=== PATIENT | female | born 1950 | race Caucasian/White ===

== ENCOUNTER 2020-01-19 07:44 | Outpatient (CLI) | payer MEDICARE, SELFPAY ==
--- NOTE | ~2020-01-19 | CT_ITS ---
EXAMINATION: CT abdomen pelvis wo/w con DATE: 01/19/2020 08:52 INDICATION: Microscopic hematuria TECHNIQUE: Computed tomography (CT) of the abdomen and pelvis was performed without and subsequently with 130 cc Omnipaque 350 intravenous contrast. Automated exposure control and iterative reconstructi on technique were employed. Exam dose: 751.43 mGy-cm total exam DLP. COMPARISON: None. FINDINGS: The lung bases are clear. Normal heart size. No pericardial or pleural effusion. No hepatic, splenic, pancreatic, and adrenal space-occupying mass lesion. Approximately 6.5 mm upper pole left renal cyst 4.7 mm probable mid to upper left renal cyst. No urinary tract calculus or hydroureteronephrosis. No abdominal aortic aneurysm. No intraperitoneal or retroperitoneal or pelvic mass lesion or adenopat hy or ascites. There are bilateral ureteral jets. No urinary bladder wall thickening. Minimal air in the urinary sam dder lumen. Retroverted uterus. 6 mm left ovarian cyst. There are numerous diverticula of the left colon; no CT evidence of diverticulitis. No bowel obstruct ion, pneumatosis or intraperitoneal free air. Retained cecal mesentery, with the cecum overlying the left mid and lower abdomen. There are fluid le vels in the small bowel and colon suggesting enterocolitis. Diffuse idiopathic skeletal hyperostosis of the lower thoracic spine. There is degenerative disc disease of the lumbar spine, most pronounced at L2-3. Bilateral hip moderate osteoarthritis IMPRESSION: 2 probable 6.5 and 4.7 mm left renal cysts No urinary tract calculus or hydroureteronephrosis Diverticulosis of the colon Retained cecal mesentery Probable enterocolitis Reviewed, dictated and finalized at [facility]. Reviewed, dictated and finalized at [facility].
[2020-01-19 08:35] LABS: Estimated Glomerular Filt Rate > 60
== END 2020-01-19 07:45 | disposition home or self-care (01) ==
PROVIDERS: Visit Provider Nurse Practitioner Adult Health
DX: R31.29 Other microscopic hematuria (principal); N28.1 Cyst of kidney, acquired; K57.90 Diverticulosis of intestine, part unspecified, without perforation or abscess without bleeding
CPT/HCPCS: 36415; 74178; Q9967

== ENCOUNTER 2021-08-10 07:52 | Outpatient (CLI) | payer MEDICARE, SELFPAY ==
--- NOTE | ~2021-08-10 | XR_ITS ---
EXAMINATION: XR abdomen/kub 1V DATE: 08/10/2021 08:18 INDICATION: Right flank pain. TECHNIQUE: A supine view of the abdomen on 2 radiographs was obtained. COMPARISON: CT abdomen and pelvis 08/10/2021 FINDINGS: There are no dilated loops of bowel. There is no urolithiasis. IMPRESSION: 1. No urolithiasis. Reviewed, dictated and finalized at [facility]. 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 No urolithiasis.
--- NOTE | ~2021-08-10 | CT_ITS ---
EXAMINATION: CT abdomen pelvis wo con DATE: 08/10/2021 08:22 INDICATION: Right flank pain for 2 months TECHNIQUE: Computed tomography (CT) of the abdomen and pelvis was performed without intravenous contr ast. The dose-length product was 320.83 mGy-cm. Automated exposure control and iterative reconstructi on technique were employed. COMPARISON: CT dated 08/10/2021. FINDINGS: Lung bases are unremarkable. Heart size is normal. No significant pleural or pericardial ef fusion. The liver, spleen, pancreas, adrenal glands and kidneys are unremarkable. Gallbladder is pres ent. No renal/ureteral stones or hydronephrosis.. There is mild atherosclerosis without aneurysm. Jim dder is decompressed. Nonobstructive bowel gas pattern. Colonic diverticulosis without evidence for d iverticulitis. Mild lumbar spondylosis. IMPRESSION: 1. No acute abdominal abnormality. No findings to account for patient's symptoms. Reviewed, dictated and finalized at [facility]. 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 No acute abdominal abnormality. No findings to account for patient's symptom s.
== END 2021-08-10 07:53 | disposition home or self-care (01) ==
LOC: ANHIMG 07:57
PROVIDERS: Visit Provider Nurse Practitioner Adult Health
DX: R10.9 Unspecified abdominal pain (principal)
CPT/HCPCS: 74018; 74176

== ENCOUNTER 2022-01-30 10:00 | Outpatient (RCR) | payer MEDICARE, SELFPAY | END 2022-01-30 23:59 | disposition home or self-care (01) | LOC: CHSSENLIFE 10:00 | PROVIDERS: PCP Family Medicine; Visit Provider Psychiatry & Neurology Psychiatry | DX: F33.1 Major depressive disorder, recurrent, moderate (principal) | CPT/HCPCS: 90792; 90853; 99213; 99214; G0463 ==

== ENCOUNTER 2022-05-01 10:00 | Outpatient (RCR) | payer MEDICARE, SELFPAY | END 2022-05-05 23:59 | disposition home or self-care (01) | LOC: CHSSENLIFE 10:00 | PROVIDERS: PCP Family Medicine; Visit Provider Psychiatry & Neurology Psychiatry | DX: F33.1 Major depressive disorder, recurrent, moderate (principal) | CPT/HCPCS: 90853; 99213; 99214; G0463 ==

== ENCOUNTER 2022-06-25 01:13 | Day surgery (SDC) | payer MEDICARE, SELFPAY ==
[2022-06-13 14:27] VITALS: BMI 25.4
[2022-06-25 09:14] VITALS: BP 125/69; PULSE 69; RESP 18; TEMP 36.4; O2SAT 95; BMI 24.0
[2022-06-25] MEDS: LACTATED RINGERS 1,000 ML 150 ML IV CONT (09:17)
--- NOTE | 2022-06-25 09:28 | WPDANESEPPF ---
Anes - Initial Pre Proc Eval Procedure: Operation Date: 06/25/22 10:15 Proposed Procedures p Esophagogastroduodenoscopy & Colonoscopy - Sukhdev Olea MD Date/Time: 06/25/22 09:28 Surgeon: Sukhdev Olea MD Pre Op Diagnosis: epigastric pain, Diarrhea Patient Data Age: 72 Gender: F Height: 1.63 m Weight: 63.6 kg Last Vital Signs Temp 97.5 F L 06/25/22 09:14 Pulse 69 06/25/22 09:14 Resp 18 06/25/22 09:14 BP 125/69 06/25/22 09:14 Pulse Ox 95 06/25/22 09:14 O2 Del Method Room Air 06/25/22 09:14 Allergies Allergy/AdvReac Type Severity Reaction Status Date / Time No Known Allergies Allergy Verified 06/25/22 09:12 Home Medications Medication Instructions Recorded Confirmed Type cholecalciferol (vitamin D3) 25 25 mcg PO DAILY 11/13/21 06/25/22 History mcg (1,000 unit) capsule dicyclomine 20 mg tablet 20 mg PO TID PRN abdominal 05/23/22 06/25/22 Rx discomfort #30 tabs duloxetine 60 mg capsule,delayed 60 mg PO DAILY 06/13/22 06/25/22 History release (Cymbalta) Patient hx anesthesia problems: none Family hx anesthesia problems: none Results Review: All pre-operative results and documents have been reviewed as part of the pre-operative evaluation. PENDING SALE TO [facility] Past Medical History Medical History (Updated 05/23/22 @ 09:35 by CAMPOS Almonte) Carpal tunnel syndrome Epigastric pain Strabismus 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 surgery Surgical History Surgical History History of cataract surgery History of orthopedic surgery Family History Family History (Updated 05/23/22 @ 09:02 by Nitin cMwilliams) Mother Hypertension Asthma Family history of osteoarthritis Alcoholism Depression Sibling Patient's sister is in good health Patient's brother is in good health Father Bleeding ulcer Social History Social History Smoking packs per day: 0.5 Smoking cigarettes per day: 10.0 Years smoked: 40 Smoking pack-years: 20.00 Smoking status: Current some day smoker Tobacco type: cigarettes Alcohol intake: current Substance use: never Substance use type: does not use Living arrangements: with family Spiritual care concerns: No Anes - Eval Final PreProcedure Day of Procedure 06/25/22 09:28 Patient weight: normal Heart: regular rate and rhythm Lungs: clear to auscultation Airway: Mallampati scale class II Neurological: alert and oriented Last oral intake: >/= 8 hours ASA classification: II Emergent: no Anesthetic plan: proceed Anesthesia type and monitoring: general GIVS and standard monitoring Results Review: All pre-operative results and documents have been reviewed as part of the pre-operative evaluation. Informed Consent: The patient's anesthetic plan and its attendant risks and benefits were discussed with the patient/family/POA. Questions were solicited and answers provided to the satisfaction of the patient/family/POA.
--- NOTE | 2022-06-25 10:00 | PM.HPGS ---
History of Present Illness History of Present Illness Consent: Risks, benefits, and alternatives have been discussed and questions answered. Patient agrees to proceed with procedure. Chief complaint: epigastric pain, Diarrhea Narrative: Nerissa Mejia is a 72 year old female with diarrhea since March using imodium prn, last colonoscopy 2010, also had intermittent epigastric pain and gerd that improved after using 30 days omeprazole. Review of Systems Constitutional: Constitutional: Denies headache(s) and Denies weakness Eyes: Eyes: Denies blurry vision ENT: Reports Normal hearing present, Denies headache(s) and Denies neck pain Cardiovascular: Cardiovascular: Denies chest pain and Denies dyspnea Respiratory: Respiratory: Denies dyspnea Gastrointestinal: Gastrointestinal: Reports no additional gastrointestinal complaints Genitourinary: Genitourinary: Denies dysuria Musculoskeletal: Musculoskeletal: Denies neck pain Integumentary/Breasts: Skin/Breast: Denies dry skin Neurologic: Reports Normal hearing present, Denies headache(s) and Denies weakness Psychiatric: Psychiatric: Denies anxiety Endocrine: Endocrine: Denies change in body appearance Hematologic/Lymphatic: Hematologic/Lymphatic: Denies easy bleeding Allergic/Immunologic: Allergic/Immunologic: Denies urticaria PMFSH Past Medical History Medical History (Updated 06/25/22 @ 10:06 by Sukhdev Olea MD) Carpal tunnel syndrome Diarrhea Epigastric pain Strabismus 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 surgery Surgical History Surgical History History of cataract surgery History of orthopedic surgery Family History Family History (Updated 05/23/22 @ 09:02 by Nitin Mcwilliams) Mother Hypertension Asthma Family history of osteoarthritis Alcoholism Depression Sibling Patient's sister is in good health Patient's brother is in good health Father Bleeding ulcer Social History Social History Smoking packs per day: 0.5 Smoking cigarettes per day: 10.0 Years smoked: 40 Smoking pack-years: 20.00 Smoking status: Current some day smoker Tobacco type: cigarettes Alcohol intake: current Substance use: never Substance use type: does not use Living arrangements: with family Spiritual care concerns: No Meds Home Medications and Allergies Home Medications Medication Instructions Recorded Confirmed Type cholecalciferol (vitamin D3) 25 25 mcg PO DAILY 11/13/21 06/25/22 History mcg (1,000 unit) capsule dicyclomine 20 mg tablet 20 mg PO TID PRN abdominal 05/23/22 06/25/22 Rx discomfort #30 tabs duloxetine 60 mg capsule,delayed 60 mg PO DAILY 06/13/22 06/25/22 History release (Cymbalta) Allergies Allergy/AdvReac Type Severity Reaction Status Date / Time No Known Allergies Allergy Verified 06/25/22 09:12 Vital Signs Vital Signs - 24 hr 06/25/22 09:14 Temperature 97.5 F L Pulse Rate 69 Respiratory Rate 18 Blood Pressure 125/69 Pulse Oximetry 95 Oxygen Delivery Room Air Exam Const: General: comfortable and no acute distress HENMT: Face/Nose/Sinus: Normal nares present Eyes: General: appearance normal, both eyes and all related structures Neck: Neck: no JVD Resp: Auscultation: clear to auscultation bilaterally Cardio: Rate: regular rate Rhythm: regular rhythm GI: Inspection: non-distended GI Palp: Yes Soft to palpation Skin: General skin exam: normal color Neuro: General: gait normal Speech: normal speech Extrem: General: normal to inspection Psych: Mental Status: mental status grossly normal Assessment and Plan Assessment and plan (1) Epigastric pain: Code(s): R10.13 - Epigastric pain Status: Acute Assessment and Plan: egd with bx may need to be back on ppi based on findings (it helped) (2) Diarrhea: Code(s): R19.7
--- NOTE | 2022-06-25 10:12 | SUR.OPER ---
EGD: [id number] COLON: [id number]
[2022-06-25 10:29] VITALS: BP 112/65; PULSE 89; RESP 26; O2SAT 97
[2022-06-25 10:39] VITALS: BP 117/94; PULSE 87; RESP 17; O2SAT 98
[2022-06-25 10:49] VITALS: BP 109/61; PULSE 81; RESP 20; O2SAT 100
== END 2022-06-25 11:03 | disposition home or self-care (01) ==
PROVIDERS: PCP Family Medicine; Visit Provider Internal Medicine Gastroenterology
PROC: 0DJ08ZZ Inspection of Upper Intestinal Tract, Via Natural or Artificial Opening Endoscopic (ICD-10-PCS; CPT 43235; principal; 2022-06-25 10:15)
DX: Z12.11 Encounter for screening for malignant neoplasm of colon (principal); K57.30 Diverticulosis of large intestine without perforation or abscess without bleeding; K64.8 Other hemorrhoids; R19.7 Diarrhea, unspecified; K21.00 Gastro-esophageal reflux disease with esophagitis, without bleeding; K44.9 Diaphragmatic hernia without obstruction or gangrene; F17.210 Nicotine dependence, cigarettes, uncomplicated
CPT/HCPCS: 45380; 43239; 88305; J2704; J7120

== ENCOUNTER 2022-08-01 10:00 | Outpatient (RCR) | payer MEDICARE, SELFPAY | END 2022-08-04 23:59 | disposition home or self-care (01) | LOC: CHSSENLIFE 10:00 | PROVIDERS: PCP Family Medicine; Visit Provider Psychiatry & Neurology Psychiatry | DX: F33.1 Major depressive disorder, recurrent, moderate (principal); F41.9 Anxiety disorder, unspecified | CPT/HCPCS: 90853; 99213; 99214; G0463 ==

== ENCOUNTER 2022-10-31 10:00 | Outpatient (RCR) | payer MEDICARE, SELFPAY | END 2022-11-04 23:59 | disposition home or self-care (01) | LOC: CHSSENLIFE 10:00 | PROVIDERS: PCP Family Medicine; Visit Provider Psychiatry & Neurology Psychiatry | DX: F33.1 Major depressive disorder, recurrent, moderate (principal); F41.9 Anxiety disorder, unspecified | CPT/HCPCS: 90832; 90853; 99214; G0463 ==

== ENCOUNTER 2023-02-03 10:00 | Outpatient (RCR) | payer MEDICARE, SELFPAY | END 2023-02-03 23:59 | disposition home or self-care (01) | LOC: CHSSENLIFE 10:00 | PROVIDERS: PCP Family Medicine; Visit Provider Psychiatry & Neurology Psychiatry | DX: F33.1 Major depressive disorder, recurrent, moderate (principal); F41.9 Anxiety disorder, unspecified | CPT/HCPCS: 90853; 99214; G0463 ==

== ENCOUNTER 2023-05-06 10:00 | Outpatient (RCR) | payer MEDICARE, SELFPAY ==
[2023-04-15 09:47] VITALS: BP 121/66; PULSE 103; RESP 20; TEMP 36.3
[2023-04-17 10:03] VITALS: BP 120/70; PULSE 118; RESP 22; TEMP 36.6; O2SAT 97
--- NOTE | 2023-04-17 10:24 | PC.NURSE ---
No nursing group due to MD visit.
[2023-04-22 10:26] VITALS: BP 122/68; PULSE 112; RESP 20; TEMP 36.5; O2SAT 99
--- NOTE | 2023-04-24 09:34 | PC.NURSE ---
No nursing group due to MD visit.
[2023-04-24 10:12] VITALS: BP 109/60; PULSE 108; RESP 20; TEMP 36.4; O2SAT 98
[2023-04-28 10:30] VITALS: BP 117/68; PULSE 112; RESP 20; TEMP 36.2; O2SAT 96
--- NOTE | 2023-04-28 11:32 | PC.NURSE ---
The patient had to leave unexpectedly after a phone call from her daughter who was having a medical emergency.
--- NOTE | 2023-04-30 10:02 | PC.NURSE ---
No nursing group today due to MD visit.
[2023-04-30 10:09] VITALS: BP 110/59; PULSE 106; RESP 20; TEMP 36.6; O2SAT 98
[2023-05-06 10:26] VITALS: BP 106/66; PULSE 112; RESP 20; TEMP 36.2; O2SAT 99
--- NOTE | 2023-05-08 10:33 | PC.NURSE ---
No nursing group today due to MD visit.
== END 2023-05-07 23:59 | disposition home or self-care (01) ==
LOC: CHSSENLIFE 10:00
PROVIDERS: PCP Family Medicine; Visit Provider Psychiatry & Neurology Psychiatry
DX: F33.1 Major depressive disorder, recurrent, moderate (principal); F41.9 Anxiety disorder, unspecified
CPT/HCPCS: 90853; 99213; 99214; G0463

== ENCOUNTER 2023-08-05 10:00 | Outpatient (RCR) | payer MEDICARE, SELFPAY ==
[2023-05-08 00:01] VITALS: BP 106/66; PULSE 112; RESP 20; TEMP 36.2; O2SAT 99
--- NOTE | 2023-05-08 10:33 | PC.NURSE ---
No nursing group on 05/08/2023 due to MD visit 05/08/2023 10:33.
--- NOTE | 2023-05-08 11:02 | WPDSLSPROGRE ---
Progress HPI Progress HPI Visit Attended By patient and staff History Obtained From patient Chief Complaint 3 week f/u HPI This is a follow-up for depression. Patient enjoys the program and participates well. She is working on issues such as coping skills and anxiety reduction. She had a scare recently when she fell off a friend's porch. Patient went to the ER and was found to have a sprained ankle and what sounds like a bruise on her tailbone and a pulled muscle in her back. Fortunately, she sustained no serious injury. She still continues to mostly abstain from cigarettes, and her GI symptoms have been fairly quiet recently. Patient is looking for to spending Thanksgiving with family. She continues on Cymbalta 60 mg b.i.d.. Average Number of Hours of Sleep 8 Sleep Quality sleep throughout the night Change in PMFSH Releveant to Presenting Illness Yes Describe Changes in PMFSH as per HPI Review of Systems Review of Systems Constitutional Reports denies change Eyes Reports WNL ENT Reports WNL Respiratory Reports WNL Cardiovascular Reports WNL Gastrointestinal Reports WNL (symptoms improved), Reports constipation and Reports loose stool Musculoskeletal Reports WNL (osteoarthritis, recent injury) and Reports muscle stiffness Neurologic Reports WNL Skin Reports bruising ADL's Reports WNL Exam Physical Exam Review of Lab Studies n/a Hygiene good General Behavior/Attitude Toward Examiner pleasant and cooperative Pain Yes Pain Location lower back Pain Characteristics acute and aching Psychiatric Exam Level of Consciousness alert Orientation person, place, time and situation Speech normal rate/tone/volume/prosody and coherent Language able to comprehend questions Mood less depressed Affect full range, appropriate and congruent Thought Processes/Form logical, linear and goal directed Thought Content diminished depressive symptoms Delusions none Homicidal/Assaultive Ideation none Suicidal Ideation none Hallucinations none Attention/Concentration focused Attention/Concentration Testing Methods observation/interview Short Term Memory Impairment none STM Testing Methods clinical interview (assessment/observation) Prison Memory Impairment none LTM Testing Methods recall of biographical information Intellectual Functioning roughly average Intellectual Functioning Assessed By fund of knowledge and current events Insight fair and improving Insight Assessed By ability to recognize & acknowledge mental illness, ability to understand the implications of mental illness, understanding of treatment options and ability to comply with treatment Judgement fair and improving Judgement Assessed By exploring recent decision-making MMSE n/a Patient Assets Patient is willing to accept treatment Patient Liabilities patient has chronic GI issues, nicotine dependence Assessment and Plan Clinical Impression/Diag Clinical Impression/Diagnosis F 33.1, progressing well. Continue IOP, monitor meds Progress Overview Reason for Continued Services in an Intensive Outpatient Program continued impaired mood and.or depression, patient would decompenste at a lower level of care and not at baseline level of functioning Treatment To Be Provided medication management and group/individual/rec therapy Discharge Disposition/Level of Care PCP Anticipated Discharge 8-12 weeks Certification Statement Certification Statement I believe this patient requires the services of the Intensive Outpatient Program and that there is reasonable expectation that the patient will make timely and significant practical improvement in the presenting acute symptoms as a result of this Intensive Outpatient Program. I do not believe this patient will benefit from a lesser l
[2023-05-13 14:31] VITALS: BP 119/74; PULSE 107; RESP 20; TEMP 36.2; O2SAT 96
--- NOTE | 2023-05-15 10:17 | PC.NURSE ---
The patient was unable to change group days this week so will only attend one group day this week due to THREE DIMENSIONAL MAP MODELER illness.
[2023-05-20 10:34] VITALS: BP 117/68; PULSE 100; RESP 20; TEMP 36.3; O2SAT 98
--- NOTE | 2023-05-22 09:54 | PC.NURSE ---
No nursing group today due to MD visit.
[2023-05-22 10:30] VITALS: BP 113/62; PULSE 99; RESP 20; TEMP 37; O2SAT 98
--- NOTE | 2023-05-22 10:46 | WPDSLSPROGRE ---
Progress HPI Progress HPI Visit Attended By patient and staff History Obtained From patient Chief Complaint 2 week f/u for depression HPI Is a routine follow-up for depression. Patient enjoys the program participates well, and working on issues including coping skills and anxiety reduction. Her tailbone and her pulled muscle in her back seem to have healed after her fall, but her ankle is still bruised and quite painful. X-ray revealed no fracture but likely just a bad sprain. She also continues to mostly abstain from cigarettes, and her GI symptoms recently have been alleviated. She is looking forward to spending [place] with family. Patient continues on Cymbalta 60 mg b.i.d.. Average Number of Hours of Sleep 8 Sleep Quality sleep throughout the night Change in PMFSH Releveant to Presenting Illness Yes Describe Changes in PMFSH Continuing improvement after recent fall Review of Systems Review of Systems Constitutional Reports denies change Eyes Reports WNL ENT Reports WNL Respiratory Reports WNL Cardiovascular Reports WNL Gastrointestinal Reports WNL (symptoms improved) Musculoskeletal Reports WNL (osteoarthritis, recent fall) Neurologic Reports WNL Skin Reports bruising ADL's Reports WNL Exam Physical Exam Review of Lab Studies no Significant Lab Findings n/a Hygiene good General Behavior/Attitude Toward Examiner pleasant and cooperative Pain Yes Pain Location foot/ankle Pain Characteristics acute and aching Psychiatric Exam Level of Consciousness alert Orientation person, place and time Speech normal rate/tone/volume/prosody and coherent Language able to comprehend questions Mood less depressed Affect full range, appropriate and congruent Thought Processes/Form logical, linear and goal directed Thought Content diminished depressive symptoms Delusions none Homicidal/Assaultive Ideation none Suicidal Ideation none Hallucinations none Attention/Concentration focused Attention/Concentration Testing Methods observation/interview Short Term Memory Impairment none STM Testing Methods clinical interview (assessment/observation) 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 Memory Impairment none LTM Testing Methods recall of historical events Intellectual Functioning roughly average Intellectual Functioning Assessed By current events Insight fair and improving Insight Assessed By ability to recognize & acknowledge mental illness, ability to understand the implications of mental illness, understanding of treatment options and ability to comply with treatment Judgement fair and improving Judgement Assessed By exploring recent decision-making MMSE n/a Patient Assets patient is willing to accept treatment Patient Liabilities patient has chronic GI symptoms, nicotine dependence Assessment and Plan Clinical Impression/Diag Clinical Impression/Diagnosis F 33.1, progressing well. Continue IOP, monitor meds Progress Overview Reason for Continued Services in an Intensive Outpatient Program continued impaired mood and.or depression, patient would decompenste at a lower level of care and not at baseline level of functioning Treatment To Be Provided medication management and group/individual/rec therapy Discharge Disposition/Level of Care PCP Anticipated Discharge 8-12 weeks Certification Statement Certification Statement I believe this patient requires the services of the Intensive Outpatient Program and that there is reasonable expectation that the patient will make timely and significant practical improvement in the presenting acute symptoms as a result of this Intensive Outpatient Program. I do not believe this patient will benefit from a lesser level of care or could be adequately and appropriately treated in a less restrictive environment.
[2023-05-27 10:24] VITALS: BP 105/66; PULSE 106; RESP 20; TEMP 37.1; O2SAT 99
--- NOTE | 2023-05-29 09:24 | PC.NURSE ---
No nursing group today due to MD visit.
[2023-05-29 14:36] VITALS: BP 106/75; PULSE 114; RESP 20; TEMP 37; O2SAT 98
[2023-06-03 09:35] VITALS: BP 115/50; PULSE 96; RESP 18; TEMP 36.1; O2SAT 98
[2023-06-05 09:35] VITALS: BP 123/73; PULSE 90; RESP 20; TEMP 36.2; O2SAT 96
--- NOTE | 2023-06-05 11:00 | PC.NURSE ---
This nurse called and spoke with at [place] at [facility] in [place] to refill the patient's Duloxetine 120mg PO daily X 30 days.
[2023-06-10 10:42] VITALS: BP 102/64; PULSE 112; RESP 20; TEMP 36.2; O2SAT 97
--- NOTE | 2023-06-12 10:09 | PC.NURSE ---
No nursing group due to MD visit.
[2023-06-12 10:43] VITALS: BP 102/73; PULSE 112; RESP 18; TEMP 37; O2SAT 98
--- NOTE | 2023-06-12 13:00 | WPDSLSPROGRE ---
Progress HPI Progress HPI Visit Attended By patient and staff History Obtained From patient Chief Complaint 3 week follow-up for depression HPI this is a routine follow-up. Patient states that she has started smoking again and is afraid that we are disappointed in her. We told her not all, and that we would work with her and give her moral support if she decided to try to quit again. She continues on Cymbalta 60 mg b.i.d.. Patient reports that her sleep is good and that her GI symptoms are essentially alleviated now that she has modified her diet. She says that smoking is all I have left after losing her , brother, and her home shortly after her . She enjoys the program and participates well. Average Number of Hours of Sleep 8 Sleep Quality sleep throughout the night Change in PMFSH Releveant to Presenting Illness Yes Describe Changes in PMFSH as above Review of Systems Review of Systems Constitutional Reports denies change Eyes Reports WNL ENT Reports WNL Respiratory Reports WNL Cardiovascular Reports WNL Gastrointestinal Reports WNL ( Symptoms improved) Musculoskeletal Reports WNL ( osteoarthritis) Neurologic Reports WNL Skin Reports WNL ADL's Reports WNL Exam Physical Exam Review of Lab Studies n/a Hygiene good General Behavior/Attitude Toward Examiner pleasant and cooperative Pain No Psychiatric Exam Level of Consciousness alert Orientation person, place, time and situation Speech normal rate/tone/volume/prosody and coherent Language able to comprehend questions Mood less depressed Affect full range, appropriate and congruent Thought Processes/Form logical, linear and goal directed Thought Content diminished depressive symptoms Delusions none Homicidal/Assaultive Ideation none Suicidal Ideation none Hallucinations none Attention/Concentration focused Attention/Concentration Testing Methods observation/interview Short Term Memory Impairment none STM Testing Methods clinical interview (assessment/observation) Senior [facility] Memory Impairment none LTM Testing Methods recall of biographical information Intellectual Functioning roughly average Intellectual Functioning Assessed By current events Insight fair and improving Insight Assessed By ability to recognize & acknowledge mental illness, ability to understand the implications of mental illness and understanding of treatment options Judgement fair Judgement Assessed By exploring recent decision-making MMSE n/a Patient Assets patient is willing to accept treatment Patient Liabilities patient has chronic GI symptoms, nicotine dependence Assessment and Plan Clinical Impression/Diag Clinical Impression/Diagnosis F 33.1, progressing well. Nicotine dependence. Progress Overview Reason for Continued Services in an Intensive Outpatient Program continued impaired mood and.or depression, patient would decompenste at a lower level of care and not at baseline level of functioning Treatment To Be Provided medication management ( Continue Cymbalta 60 mg b.i.d.) Discharge Disposition/Level of Care PCP Anticipated Discharge 8-12 weeks Certification Statement Certification Statement I believe this patient requires the services of the Intensive Outpatient Program and that there is reasonable expectation that the patient will make timely and significant practical improvement in the presenting acute symptoms as a result of this Intensive Outpatient Program. I do not believe this patient will benefit from a lesser level of care or could be adequately and appropriately treated in a less restrictive environment. My decision is based on the preceding clinical information.
[2023-06-17 10:26] VITALS: BP 112/62; PULSE 112; RESP 22; TEMP 36.6; O2SAT 98
--- NOTE | 2023-06-19 09:36 | PC.NURSE ---
No nursing group due to MD visit.
[2023-06-19 10:25] VITALS: BP 115/61; PULSE 112; RESP 20; TEMP 37; O2SAT 97
--- NOTE | 2023-06-25 11:15 | PC.NURSE ---
The patient will only be attending one group day this week due to weather cancellation.
--- NOTE | 2023-06-26 10:12 | PC.NURSE ---
No nursing group due to MD visit.
[2023-06-26 10:15] VITALS: BP 111/61; PULSE 107; RESP 20; TEMP 36.5; O2SAT 98
[2023-07-01 10:39] VITALS: BP 117/66; PULSE 112; RESP 20; TEMP 36.6; O2SAT 100
--- NOTE | 2023-07-03 09:31 | PC.NURSE ---
No nursing group due to MD visit.
[2023-07-03 10:21] VITALS: BP 109/63; PULSE 105; RESP 20; TEMP 36.8; O2SAT 98
--- NOTE | 2023-07-03 12:15 | WPDSLSPROGRE ---
Progress HPI Progress HPI Visit Attended By patient and staff History Obtained From patient Chief Complaint 3 week follow-up for depression HPI this is a routine follow-up. Patient enjoys the program participates well. She has been a bit more depressed, but attributes it to the time of the year and the fact is been rainy and cloudy. patient does use a light box and feels that it helps somewhat. She continues on Cymbalta 60 mg b.i.d.. Patient continues to smoke about a pack of cigarettes a day. We also encouraged exercise, such as walking. GI symptoms continued to be for the most part ameliorated. Average Number of Hours of Sleep 8 Sleep Quality sleep throughout the night Change in PMFSH Releveant to Presenting Illness Yes Describe Changes in PMFSH As above Review of Systems Review of Systems Constitutional Reports denies change Eyes Reports WNL ENT Reports WNL Respiratory Reports WNL Cardiovascular Reports WNL Gastrointestinal Reports WNL Musculoskeletal Reports other ( Osteoarthritis) Neurologic Reports WNL Skin Reports WNL ADL's Reports WNL and Reports independent Exam Physical Exam Review of Lab Studies n/a Hygiene good General Behavior/Attitude Toward Examiner pleasant and cooperative Pain No Psychiatric Exam Level of Consciousness alert Orientation person, place, time and situation Speech normal rate/tone/volume/prosody and coherent Language able to comprehend questions Mood mildly depressed Affect full range, appropriate and congruent Thought Processes/Form logical, linear and goal directed Thought Content mildly depressed Delusions none Homicidal/Assaultive Ideation none Suicidal Ideation none Hallucinations none Attention/Concentration focused Attention/Concentration Testing Methods observation/interview Short Term Memory Impairment none STM Testing Methods clinical interview (assessment/observation) Alf Memory Impairment none LTM Testing Methods recall of biographical information Intellectual Functioning roughly average Intellectual Functioning Assessed By current events Insight fair and improving Insight Assessed By ability to recognize & acknowledge mental illness, ability to understand the implications of mental illness and understanding of treatment options Judgement fair and improving Judgement Assessed By exploring recent decision-making MMSE n/a Patient Assets patient is willing to accept treatment Patient Liabilities chronic GI symptoms, nicotine dependence Assessment and Plan Clinical Impression/Diag Clinical Impression/Diagnosis F 33.1, progressing well Progress Overview Reason for Continued Services in an Intensive Outpatient Program continued impaired mood and.or depression, patient would decompenste at a lower level of care, not at baseline level of functioning and high risk for relapse Treatment To Be Provided medication management and group/individual/rec therapy Discharge Disposition/Level of Care PCP Anticipated Discharge 8-12 weeks Certification Statement Certification Statement I believe this patient requires the services of the Intensive Outpatient Program and that there is reasonable expectation that the patient will make timely and significant practical improvement in the presenting acute symptoms as a result of this Intensive Outpatient Program. I do not believe this patient will benefit from a lesser level of care or could be adequately and appropriately treated in a less restrictive environment. My decision is based on the preceding clinical information.
[2023-07-08 10:33] VITALS: BP 102/64; PULSE 104; RESP 20; TEMP 37.1; O2SAT 98
--- NOTE | 2023-07-10 08:39 | PC.NURSE ---
No nursing group due to MD visit.
[2023-07-10 10:18] VITALS: BP 108/76; PULSE 104; RESP 20; TEMP 37.1; O2SAT 99
[2023-07-15 10:26] VITALS: BP 113/76; PULSE 100; RESP 20; TEMP 36.6; O2SAT 99
--- NOTE | 2023-07-17 08:00 | PCSTNOTE ---
07/17/2023 Estella cancelled 07/17/2023 group attendance due to out of state family currently visiting; Estella is scheduled to return to group 07/22/2023.
[2023-07-22 10:37] VITALS: BP 113/70; PULSE 90; RESP 20; TEMP 36.9; O2SAT 97
--- NOTE | 2023-07-24 09:26 | PC.NURSE ---
No nursing group today due to MD visit.
[2023-07-24 10:19] VITALS: BP 102/60; PULSE 90; RESP 18; TEMP 36.9; O2SAT 100
--- NOTE | 2023-07-24 12:24 | WPDSLSPROGRE ---
Progress HPI Progress HPI Visit Attended By patient and staff History Obtained From patient Chief Complaint 3 week follow-up for depression and anxiety HPI this is a routine follow-up. Patient is weak started out well for her, in that her daughter walker up at 7:00 a.m. on Friday to take her to [employer] and when they got out the car she told the patient to look in the back and when Daly did, her grandson was in the back, who it is apprised her by coming although a for organ. However later in the day they drove to [place] and went to [employer] and while they were in line, Daly said that her daughter had what turned out to be a grand mal seizure. Patient called 911 and they took her daughter to [facility]. Apparently her daughter had tests done to rule out any other issues, and ended up putting her on anti seizure medication and keeping her overnight. Patient says that she was quite traumatized by the incident, and mentioned that she had tried to go back on Chantix in the meantime but she is been under so much stress this week that she wants to stop the Chantix and go back to smoking. She says that she will try again in the spring. Patient continues on Cymbalta 60 mg b.i.d., uses a light box, and her GI symptoms continue to be for the most part in remission. She has some difficulty sleeping, but appetite is good. Average Number of Hours of Sleep 6 Sleep Quality difficulty falling asleep and frequent awakening Change in PMFSH Releveant to Presenting Illness Yes Describe Changes in PMFSH as above Review of Systems Review of Systems Constitutional Reports denies change Eyes Reports WNL ENT Reports WNL Respiratory Reports WNL Cardiovascular Reports WNL Gastrointestinal Reports WNL Musculoskeletal Reports WNL and Reports other ( Osteoarthritis) Neurologic Reports WNL Skin Reports WNL ADL's Reports WNL Exam Physical Exam Review of Lab Studies n/a Hygiene good General Behavior/Attitude Toward Examiner pleasant and cooperative Pain No Psychiatric Exam Level of Consciousness alert Orientation person, place, time and situation Speech normal rate/tone/volume/prosody and coherent Language able to comprehend questions Mood anxious Affect full range, appropriate and congruent Thought Processes/Form logical, linear and goal directed Thought Content anxiety symptoms Delusions none Homicidal/Assaultive Ideation none Suicidal Ideation none Hallucinations none Attention/Concentration focused Attention/Concentration Testing Methods observation/interview Short Term Memory Impairment none STM Testing Methods clinical interview (assessment/observation) 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 Memory Impairment none LTM Testing Methods recall of biographical information Intellectual Functioning roughly average Intellectual Functioning Assessed By fund of knowledge Insight fair and improving Insight Assessed By ability to recognize & acknowledge mental illness, ability to understand the implications of mental illness, understanding of treatment options and ability to comply with treatment Judgement fair and improving Judgement Assessed By exploring recent decision-making MMSE n/a Patient Assets patient is willing to accept treatment Patient Liabilities chronic GI symptoms, nicotine dependence Assessment and Plan Clinical Impression/Diag Clinical Impression/Diagnosis F 33.1, increase in symptoms due to recent stressors Progress Overview Reason for Continued Services in an Intensive Outpatient Program continued impaired mood and.or depression, patient would decompenste at a lower level of care, not at baseline level of functioning and high risk for relapse Treatment To Be Provided medication management and group/individual/rec therapy Discharge Disposition/
[2023-07-29 10:45] VITALS: PULSE 102; RESP 20; TEMP 36.7; O2SAT 96
--- NOTE | 2023-07-31 09:30 | PC.NURSE ---
No nursing group due to MD visit.
[2023-07-31 10:02] VITALS: BP 109/82; PULSE 100; RESP 20; TEMP 36.6; O2SAT 97
[2023-08-05 10:18] VITALS: BP 105/70; PULSE 104; RESP 18; TEMP 36.9; O2SAT 99
== END 2023-08-06 23:59 | disposition home or self-care (01) ==
LOC: CHSSENLIFE 10:00
PROVIDERS: PCP Family Medicine; Visit Provider Psychiatry & Neurology Psychiatry
DX: F33.1 Major depressive disorder, recurrent, moderate (principal); F41.9 Anxiety disorder, unspecified
CPT/HCPCS: 90847; 90853; 99213; G0463

== ENCOUNTER 2023-10-02 10:00 | Outpatient (RCR) | payer MEDICARE, SELFPAY ==
[2023-08-07 00:02] VITALS: BP 105/70; PULSE 104; RESP 18; TEMP 36.9; O2SAT 99
[2023-08-07 10:48] VITALS: BP 103/68; PULSE 114; RESP 20; TEMP 36.6; O2SAT 98
--- NOTE | 2023-08-07 17:02 | PC.NURSE ---
No nursing group due to MD visit.
[2023-08-12 09:27] VITALS: BP 102/66; PULSE 103; RESP 20; TEMP 36.2; O2SAT 98
--- NOTE | 2023-08-14 09:20 | PC.NURSE ---
No nursing group today due to MD visit.
[2023-08-14 10:11] VITALS: BP 104/66; PULSE 106; RESP 18; TEMP 36.5; O2SAT 96
[2023-08-19 10:46] VITALS: BP 115/68; PULSE 112; RESP 20; TEMP 36.8; O2SAT 97
--- NOTE | 2023-08-21 09:34 | PC.NURSE ---
No nursing group due to MD visit.
[2023-08-21 10:13] VITALS: BP 106/70; PULSE 111; RESP 20; TEMP 36.5; O2SAT 96
--- NOTE | 2023-08-21 12:49 | WPDSLSPROGRE ---
Progress HPI Progress HPI Visit Attended By patient and staff History Obtained From patient Chief Complaint four-week follow-up for depression anxiety HPI this is a routine follow-up. Patient enjoys the program participates well. Mood has been stable. Her GI symptoms have been stable as well. She is on Cymbalta 60 mg b.i.d., and does not wish to try Chantix again at this time, but is thinking about doing this in the future. Her daughter is doing better as well. Still uses a light box occasionally. Sleep and appetite are good. Average Number of Hours of Sleep 8 Sleep Quality sleep throughout the night Change in PMFSH Releveant to Presenting Illness No Review of Systems Review of Systems Constitutional Reports denies change Eyes Reports WNL ENT Reports WNL Respiratory Reports WNL Cardiovascular Reports WNL Gastrointestinal Reports WNL Musculoskeletal Reports other ( Osteoarthritis) Neurologic Reports WNL Skin Reports WNL ADL's Reports WNL Exam Physical Exam Review of Lab Studies n/a Hygiene good General Behavior/Attitude Toward Examiner pleasant and cooperative Pain No Psychiatric Exam Level of Consciousness alert Orientation person, place, time and situation Speech normal rate/tone/volume/prosody and coherent Language able to comprehend questions Mood decreased depressive and anxious mood Affect full range, appropriate and congruent Thought Processes/Form logical, linear and goal directed Thought Content diminished depressive and anxiety sy Delusions none Homicidal/Assaultive Ideation none Suicidal Ideation none Hallucinations none Attention/Concentration focused Attention/Concentration Testing Methods observation/interview Short Term Memory Impairment none STM Testing Methods clinical interview (assessment/observation) LTM Testing Methods recall of biographical information Intellectual Functioning roughly average Intellectual Functioning Assessed By fund of knowledge Insight fair and improving Insight Assessed By ability to recognize & acknowledge mental illness, ability to understand the implications of mental illness, understanding of treatment options and ability to comply with treatment Judgement fair and improving Judgement Assessed By exploring recent decision-making MMSE n/a Patient Assets patient is willing to accept treatment, able to perform ADLs Patient Liabilities nicotine dependence, chronic GI symptoms Assessment and Plan Clinical Impression/Diag Clinical Impression/Diagnosis F 33.1, progressing well. Continue meds Progress Overview Reason for Continued Services in an Intensive Outpatient Program continued impaired mood and.or depression, patient would decompenste at a lower level of care, not at baseline level of functioning and high risk for relapse Treatment To Be Provided medication management and group/individual/rec therapy Discharge Disposition/Level of Care outpatient therapy Anticipated Discharge 8-12 weeks Certification Statement Certification Statement I believe this patient requires the services of the Intensive Outpatient Program and that there is reasonable expectation that the patient will make timely and significant practical improvement in the presenting acute symptoms as a result of this Intensive Outpatient Program. I do not believe this patient will benefit from a lesser level of care or could be adequately and appropriately treated in a less restrictive environment. My decision is based on the preceding clinical information.
[2023-08-26 10:30] VITALS: BP 117/66; PULSE 112; RESP 20; TEMP 37.1; O2SAT 98
--- NOTE | 2023-08-28 10:08 | PC.NURSE ---
No nursing group due to MD visit.
[2023-08-28 10:27] VITALS: BP 113/74; PULSE 106; RESP 20; TEMP 36.6; O2SAT 97
[2023-09-02 10:48] VITALS: BP 98/72; PULSE 110; RESP 20; TEMP 36.4; O2SAT 96
--- NOTE | 2023-09-04 07:57 | PC.NURSE ---
No nursing group due to MD visit.
[2023-09-04 09:33] VITALS: BP 98/61; PULSE 105; RESP 20; TEMP 36.2; O2SAT 98
--- NOTE | 2023-09-08 08:04 | PC.NURSE ---
This nurse called and spoke with Ivon at [facility] in [place] and refilled the patient's Cymbalta 120mg daily X 30 days.
[2023-09-09 10:39] VITALS: BP 111/61; PULSE 87; RESP 20; TEMP 37.1; O2SAT 99
--- NOTE | 2023-09-11 10:21 | PC.NURSE ---
No nursing group due to MD visit.
[2023-09-11 10:39] VITALS: BP 108/60; PULSE 88; RESP 20; TEMP 36.6; O2SAT 98
--- NOTE | 2023-09-11 12:32 | WPDSLSPROGRE ---
Progress HPI Progress HPI Visit Attended By patient and staff History Obtained From patient Chief Complaint 3 week follow-up HPI this is a routine follow-up for depression anxiety. Patient decided to start the Chantix since our last visit, so a prescription was called in for her. She has been on the medication 1-2 weeks and has not smoked for 8 days, with only mild cravings. She only reports mild nausea as a side effect. Doing well. Also continues to use a light box occasionally. Sleep and appetite are good. Patient also continues on Cymbalta 60 mg b.i.d.. She has been very supportive with her daughter, who had new onset seizure disorder and is struggling. Average Number of Hours of Sleep 8 Sleep Quality sleep throughout the night Change in PMFSH Releveant to Presenting Illness Yes Describe Changes in PMFSH As above Review of Systems Review of Systems Constitutional Reports denies change Eyes Reports WNL ENT Reports WNL Respiratory Reports WNL Cardiovascular Reports WNL Gastrointestinal Reports WNL Musculoskeletal Reports other ( osteoarthritis) Neurologic Reports WNL Skin Reports WNL ADL's Reports WNL Exam Physical Exam Review of Lab Studies n/a Hygiene good General Behavior/Attitude Toward Examiner pleasant and cooperative Pain No Psychiatric Exam Level of Consciousness alert Orientation person, place, time and situation Speech normal rate/tone/volume/prosody and coherent Language able to comprehend questions Mood diminished depressive and anxious mood Affect full range, appropriate and congruent Thought Processes/Form logical, linear and goal directed Thought Content diminished depressive and anxiety symptoms Delusions none Homicidal/Assaultive Ideation none Suicidal Ideation none Hallucinations none Attention/Concentration focused Attention/Concentration Testing Methods observation/interview Short Term Memory Impairment none STM Testing Methods clinical interview (assessment/observation) Penitentiary Memory Impairment none LTM Testing Methods recall of biographical information Intellectual Functioning roughly average Intellectual Functioning Assessed By fund of knowledge Insight fair and improving Insight Assessed By ability to recognize & acknowledge mental illness, ability to understand the implications of mental illness, understanding of treatment options and ability to comply with treatment Judgement fair and improving Judgement Assessed By exploring recent decision-making MMSE n/a Patient Assets patient is willing to accept treatment, able to perform ADLs Patient Liabilities nicotine dependence, chronic GI symptoms Assessment and Plan Clinical Impression/Diag Clinical Impression/Diagnosis F 33.1, progressing well. Continue meds Progress Overview Reason for Continued Services in an Intensive Outpatient Program continued impaired mood and.or depression, patient would decompenste at a lower level of care, not at baseline level of functioning and high risk for relapse Treatment To Be Provided medication management and group/individual/rec therapy Discharge Disposition/Level of Care PCP Anticipated Discharge 8-12 weeks Certification Statement Certification Statement I believe this patient requires the services of the Intensive Outpatient Program and that there is reasonable expectation that the patient will make timely and significant practical improvement in the presenting acute symptoms as a result of this Intensive Outpatient Program. I do not believe this patient will benefit from a lesser level of care or could be adequately and appropriately treated in a less restrictive environment. My decision is based on the preceding clinical information.
--- NOTE | 2023-09-16 08:47 | PC.NURSE ---
No nursing group due to nurse meeting.
[2023-09-16 09:12] VITALS: BP 110/68; PULSE 93; RESP 20; TEMP 37; O2SAT 97
--- NOTE | 2023-09-18 10:01 | PC.NURSE ---
No nursing group due to MD visit.
[2023-09-18 10:19] VITALS: BP 104/61; PULSE 93; RESP 20; TEMP 36.3; O2SAT 98
[2023-09-23 10:24] VITALS: BP 114/64; PULSE 102; RESP 20; TEMP 36.4; O2SAT 98
[2023-09-25 10:08] VITALS: BP 111/68; PULSE 110; RESP 20; TEMP 36.7; O2SAT 97
--- NOTE | 2023-09-25 10:14 | PC.NURSE ---
No nursing group due to MD visit.
[2023-09-30 10:06] VITALS: BP 126/69; PULSE 105; RESP 20; TEMP 36.7; O2SAT 97
--- NOTE | 2023-10-02 09:52 | PC.NURSE ---
No nursing group due to MD visit.
[2023-10-02 10:39] VITALS: BP 120/70; PULSE 100; RESP 20; TEMP 36.6; O2SAT 99
--- NOTE | 2023-10-02 13:08 | P.DS_ITS ---
Discharge Summary Mental Status see response to treatment/treatment course summary Reason for Admission patient is a 72-year-old white female with a long history of depression and anxiety, treated for approximately 40 years mainly on Prozac prior to admission. At that time she was on 40 mg q.day, but endorsed feelings of depressed and anxious mood, decreased enjoyment of things, low motivation, hypersomnia, low self-esteem, difficulty concentrating, and hopelessness at the time admission. She did report she had a traumatic childhood and has smoked intermittently for 60 years. Treatment Plan Utilization/Treatment Patient was admitted and Prozac continued, however multiple medication changes were initiated. On 10/22/2021 she started BuSpar 5 mg b.i.d. and decrease Prozac to 20 mg q.day. on 04/30 we discontinued Prozac and BuSpar and start Cymbalta 30 mg q.day, which was increased to 60 mg q.day on 02/07/2022, but this was decreased back down to 30 mg a day as patient felt that she may be having side effects. On 04/25/2022 we discontinued Cymbalta 30 mg is started Prozac again 20 mg q.day. however on we discontinued Prozac and started Cymbalta again at 30 mg q.day. This was increased to 90 mg q.day on 08/19/2022. On 09/19/2022 we started Wellbutrin 150 mg q.day and increased this to 150 mg b.i.d. on 10/10/2022 for treatment of nicotine dependence however, we ended up discontinuing this and increased her Cymbalta to 120 mg q.day on 11/21/2022. On 12/12/2022 she again wanted to go off the Cymbalta so we did this and start her on Chantix. Patient decided that she wanted to stay on Cymbalta 60 mg and we also increased her Chantix to 1 mg b.i.d. on 01/23/2023, later increased to 1 mg b.i.d. on 03/06/2023 we decreased Chantix to 0.5 mg 3 times a day due to side effects. We finally discontinued this on 03/27/2023 and restarted at 1 mg b.i.d. on 09/11/2019 for her Cymbalta was also increased to 90 mg q.day, and then to 120 mg q.day. she finally discontinued her Chantix due to irritability and nausea but says that although she had some cravings, she is using a nicotine patch and this has helped somewhat. Supportive/cognitive therapy utilized and patient was provided educational many subjects including safety, nutrition, overall general health, falls, coping skills, grief, behavioral activation, self-care, communication, smoking cessation, boundaries, benefits of exercising, organization, exercise. She also continued to use her light box. Response to [place]/Treatment Course Summary On discharge, patient denied any significant symptoms of depression and a nxiety. She reports sleeping 8 hours at night on discharge with good appetite and her relationship with her daughter Has improved. She spends time with family and friends, and is currently not smoking. Mental status on discharge- appropriately dressed and groomed. Pleasant cooperative. Normal motor activity. Mood/ affect less depressed/ anxious. Speech is normal amount, volume, rate. Thought content remarkable for diminished symptoms of depression anxiety. Thought process logical. Insight judgment good. Alert orient x4. Estimated intellectual functioning average. Immediate and recent memory grossly intact. Aftercare Plan Outpatient follow-up with PCP Discharge Diagnosis F 33.1, F 41. 9
== END 2023-10-02 15:10 | disposition home or self-care (01) ==
LOC: CHSSENLIFE 10:00
PROVIDERS: PCP Family Medicine; Visit Provider Psychiatry & Neurology Psychiatry
DX: F33.1 Major depressive disorder, recurrent, moderate (principal); F41.9 Anxiety disorder, unspecified
CPT/HCPCS: 90853; 99213; 99214; G0463

== ENCOUNTER 2024-05-18 10:00 | Outpatient (RCR) | payer MEDICARE, SELFPAY ==
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
[2024-02-24 10:11] VITALS: BP 126/82; PULSE 100; RESP 20; TEMP 37
[2024-02-26 10:18] VITALS: BP 109/67; PULSE 99; RESP 20; TEMP 36.8; O2SAT 98
--- NOTE | 2024-02-26 10:27 | PC.NURSE ---
No nursing group due to MD visit.
--- NOTE | 2024-03-15 11:27 | PC.NURSE ---
This nurse spoke with the patient who reported that she is ill after returning from her trip and is seeing her physician tomorrow. She will be unable to attend her scheduled appointment tomorrow. She will update the program after seeing her physician.
--- NOTE | 2024-03-18 07:52 | SLSTHERAPY ---
03/18/2024 Estella canceled 03/18/2024 group & doctor appointment attendance due to illness; Estella is scheduled to return to group 03/23/2024. 7:53
--- NOTE | 2024-03-23 08:06 | SLSTHERAPY ---
03/23/2024 Phone call received from Estella canceling 03/23/2024 group attendance due to continued illness; Estella will contact to confirm availability for 03/25/2024 or 03/30/2024. 8:07
--- NOTE | 2024-03-25 09:49 | PC.NURSE ---
No nursing group due to MD visit.
[2024-03-25 10:20] VITALS: BP 124/65; PULSE 90; RESP 22; TEMP 36.3; O2SAT 94
--- NOTE | 2024-03-25 11:23 | WPDSLSPROGRE ---
Progress HPI Progress HPI Visit Attended By patient and staff History Obtained From patient and other Chief Complaint routine follow-up for depression and anxiety HPI this is a routine follow-up for depression and anxiety. Actually this is a post admission follow-up, but patient has not been seen for 5 weeks since admission due to the fact that she was in [place]. It sounds like the trip started out well but then she ended up getting COVID. She is wearing a mask today and is on day 12, but still feels somewhat miserable. She remains on Cymbalta 60 mg q.a.m. and says that the withdrawal symptoms are better but she still wants to go back on Prozac as this helped in the past. Enjoys program and participates well. Acknowledges need for therapy. Average Number of Hours of Sleep 7 Sleep Quality sleep throughout the night Change in PMFSH Releveant to Presenting Illness Yes Describe Changes in PMFSH COVID infection as above Review of Systems Review of Systems Constitutional Reports fatigue and generalized weakness Eyes Reports WNL ENT Reports WNL Respiratory Reports other ( COVID infection) Cardiovascular Reports WNL Gastrointestinal Reports other ( IBS) Musculoskeletal Reports other ( osteoarthritis) Neurologic Reports other ( dizziness, other antidepressant withdrawal symptoms) Skin Reports WNL ADL's Reports WNL Exam Physical Exam Review of Lab Studies n/a Hygiene good General Behavior/Attitude Toward Examiner pleasant and cooperative Pain No Psychiatric Exam Level of Consciousness alert Orientation person, place, time and situation Speech normal rate/tone/volume/prosody and coherent Language able to comprehend questions Mood depressed Affect full range, appropriate and congruent Thought Processes/Form logical, linear and goal directed Thought Content depressive symptoms Delusions none Homicidal/Assaultive Ideation none Suicidal Ideation none Hallucinations none Attention/Concentration focused Attention/Concentration Testing Methods observation/interview Short Term Memory Impairment none STM Testing Methods clinical interview (assessment/observation) Prison Memory Impairment none LTM Testing Methods recall of biographical information Intellectual Functioning roughly average Intellectual Functioning Assessed By current events Insight fair and improving Insight Assessed By ability to recognize & acknowledge mental illness, ability to understand the implications of mental illness, understanding of treatment options and ability to comply with treatment Judgement fair and improving Judgement Assessed By exploring recent decision-making MMSE n/a Patient Assets patient is willing to accept treatment, able to perform ADLs Patient Liabilities chronic depression Assessment and Plan Clinical Impression/Diag Clinical Impression/Diagnosis F 33.1. Will decrease Cymbalta to 30 mg q.a.m., start Prozac 20 mg q.a.m., return in 2 weeks Progress Overview Reason for Continued Services in an Intensive Outpatient Program continued impaired mood and.or depression, patient would decompenste at a lower level of care, not at baseline level of functioning and high risk for relapse Treatment To Be Provided medication management and group/individual/rec therapy Discharge Disposition/Level of Care PCP Anticipated Discharge 8-12 weeks Certification Statement Certification Statement I believe this patient requires the services of the Intensive Outpatient Program and that there is reasonable expectation that the patient will make timely and significant practical improvement in the presenting acute symptoms as a result of this Intensive Outpatient Program. I do not believe this patient will benefit from a lesser level of care or could be adequately and appropriately treated in a less restrictive environment. My decision is based on the preceding clinical information.
--- NOTE | 2024-03-25 14:27 | PC.NURSE ---
This nurse called [facility] and ordered the patient's Prozac 20mg daily X 30 days.
--- NOTE | 2024-03-25 14:40 | PC.NURSE ---
This nurse called [facility] in [place] and ordered Prazosin 1mg PO every evening X 30 days.
[2024-03-30 10:05] VITALS: BP 109/86; PULSE 88; RESP 20; TEMP 36.6; O2SAT 96
[2024-04-01 09:55] VITALS: BP 110/72; PULSE 88; RESP 20; TEMP 36.3; O2SAT 93
--- NOTE | 2024-04-01 10:31 | PC.NURSE ---
No nursing group due to MD visit.
[2024-04-06 13:20] VITALS: BP 101/60; PULSE 90; RESP 20; TEMP 36.6; O2SAT 98
--- NOTE | 2024-04-06 13:21 | PC.NURSE ---
No nursing group due to nurse meeting.
[2024-04-08 10:32] VITALS: BP 123/68; PULSE 90; RESP 20; TEMP 36.7; O2SAT 97
--- NOTE | 2024-04-08 11:14 | PC.NURSE ---
No nursing group due to MD visit.
[2024-04-13 10:10] VITALS: BP 118/74; PULSE 90; RESP 20; TEMP 36.3; O2SAT 96
[2024-04-15 10:27] VITALS: BP 100/60; PULSE 98; RESP 20; TEMP 36.2; O2SAT 98
--- NOTE | 2024-04-15 11:15 | PC.NURSE ---
No nursing group due to MD visit.
[2024-04-20 10:14] VITALS: BP 117/80; PULSE 104; RESP 20; TEMP 36.7; O2SAT 95
--- NOTE | 2024-04-22 09:52 | PC.NURSE ---
No nursing group due to MD visit.
[2024-04-22 10:41] VITALS: BP 124/77; PULSE 100; RESP 20; TEMP 37.1; O2SAT 98
--- NOTE | 2024-04-22 12:08 | WPDSLSPROGRE ---
Progress HPI Progress HPI Visit Attended By patient and staff History Obtained From patient Chief Complaint routine follow-up for depression and anxiety HPI this is a routine follow-up for depression anxiety. At our last visit she wanted to go back on Prozac, so we decreased her Cymbalta to 30 mg q.a.m. and started Prozac 20 mg q.a.m.. She currently reports no change, As well as no withdrawal symptoms. In the past she had been on 40 mg of Prozac. She does continue to do light therapy, and this definitely helps. She brought her light box to group today to show everyone. Still having some post COVID symptoms, but was put on prednisone by her PCP which has helped. Enjoys program and participates well. Average Number of Hours of Sleep 7 Sleep Quality sleep throughout the night Change in PMFSH Releveant to Presenting Illness Yes Describe Changes in PMFSH as per HPI Review of Systems Review of Systems Constitutional Reports denies change Eyes Reports WNL ENT Reports WNL Respiratory Reports cough/congestion Cardiovascular Reports WNL Gastrointestinal Reports other ( IBS) Musculoskeletal Reports other ( osteoarthritis) Neurologic Reports other ( dizziness) Skin Reports WNL ADL's Reports WNL Exam Physical Exam Review of Lab Studies n/a Hygiene good General Behavior/Attitude Toward Examiner pleasant and cooperative Pain No Psychiatric Exam Level of Consciousness alert Orientation person, place, time and situation Speech normal rate/tone/volume/prosody and coherent Language able to comprehend questions Mood less depressed Affect full range, appropriate and congruent Thought Processes/Form logical, linear and goal directed Thought Content diminished depressive symptoms Delusions none Homicidal/Assaultive Ideation none Suicidal Ideation none Hallucinations none Attention/Concentration focused Attention/Concentration Testing Methods observation/interview Short Term Memory Impairment none STM Testing Methods clinical interview (assessment/observation) Custodial Memory Impairment none LTM Testing Methods recall of biographical information Intellectual Functioning roughly average Intellectual Functioning Assessed By fund of knowledge Insight fair and improving Insight Assessed By ability to recognize & acknowledge mental illness, ability to understand the implications of mental illness, understanding of treatment options and ability to comply with treatment Judgement fair and improving Judgement Assessed By exploring recent decision-making MMSE n/a Patient Assets patient is willing to accept treatment, able to perform ADLs Patient Liabilities treatment resistant depression Assessment and Plan Clinical Impression/Diag Clinical Impression/Diagnosis F 33.1, no change. Will continue Prozac and discontinue Cymbalta. Progress Overview Reason for Continued Services in an Intensive Outpatient Program continued impaired mood and.or depression, patient would decompenste at a lower level of care, not at baseline level of functioning and high risk for relapse Treatment To Be Provided medication management Discharge Disposition/Level of Care PCP Anticipated Discharge 8-12 weeks Certification Statement Certification Statement I believe this patient requires the services of the Intensive Outpatient Program and that there is reasonable expectation that the patient will make timely and significant practical improvement in the presenting acute symptoms as a result of this Intensive Outpatient Program. I do not believe this patient will benefit from a lesser level of care or could be adequately and appropriately treated in a less restrictive environment. My decision is based on the preceding clinical information.
[2024-04-27 10:14] VITALS: BP 139/65; PULSE 86; RESP 20; TEMP 36.4; O2SAT 98
--- NOTE | 2024-04-29 10:15 | PC.NURSE ---
No nursing group due to MD visit.
[2024-04-29 10:22] VITALS: BP 124/70; PULSE 90; RESP 20; TEMP 36.8; O2SAT 98
[2024-05-04 10:41] VITALS: BP 103/60; PULSE 98; RESP 20; TEMP 36.8; O2SAT 97
--- NOTE | 2024-05-04 11:11 | PC.NURSE ---
No nursing group due to nurse meeting.
[2024-05-05 10:21] VITALS: BP 130/73; PULSE 100; RESP 20; TEMP 36.8; O2SAT 96
--- NOTE | 2024-05-05 10:49 | PC.NURSE ---
No nursing group due to MD visit.
--- NOTE | 2024-05-05 13:54 | P.PN_ITS ---
Progress HPI Progress HPI Visit Attended By patient and staff History Obtained From patient Chief Complaint 2 week follow-up HPI this is a follow-up visit. Patient is being seen for depression and anxie ty. At our last visit we discontinued the Cymbalta as she was on Prozac. She reports no problems since then, except for the fact that she feels that the Prozac is not doing quite as well as what she had expected. patient says that she has always been a worrier, perfectionistic, and pessimistic. She has been on 40 mg the past and seemed to do well on this dose. 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 Enjoys program participates well. Is no longer on prednisone but still has difficulty with taste since COVID. She plans to get a booster after a few months, has had the RSV vaccine, but needs to get a flu shot. Average Number of Hours of Sleep 7 Sleep Quality sleep throughout the night Change in PMFSH Releveant to Presenting Illness Yes Describe Changes in PMFSH As above Review of Systems Review of Systems Constitutional Reports denies change Eyes Reports WNL ENT Reports other ( loss of taste) Respiratory Reports other ( recent COVID infection) Cardiovascular Reports WNL Gastrointestinal Reports other ( IBS) Musculoskeletal Reports other ( osteoarthritis) Neurologic Reports WNL Skin Reports WNL ADL's Reports WNL Exam Physical Exam Review of Lab Studies n/a Hygiene good General Behavior/Attitude Toward Examiner pleasant and cooperative Pain No Psychiatric Exam Level of Consciousness alert Orientation person, place, time and situation Speech normal rate/tone/volume/prosody and coherent Language able to comprehend questions Mood Anxious, mildly depressed Affect full range, appropriate and congruent Thought Processes/Form logical, linear and goal directed Thought Content depressed and anxious mood Delusions none Homicidal/Assaultive Ideation none Suicidal Ideation none Hallucinations none Attention/Concentration focused Attention/Concentration Testing Methods observation/interview Short Term Memory Impairment none STM Testing Methods clinical interview (assessment/observation) Snf Memory Impairment none LTM Testing Methods recall of biographical information Intellectual Functioning roughly average Intellectual Functioning Assessed By fund of knowledge Insight fair and improving Insight Assessed By ability to recognize & acknowledge mental illness, ability to understand the implications of mental illness, understanding of treatment options and ability to comply with treatment Judgement fair and improving Judgement Assessed By exploring recent decision-making MMSE n/a Patient Assets patient is willing to accept treatment, able to perform ADLs Patient Liabilities chronic depression and anxiety Assessment and Plan Clinical Impression/Diag0 Clinical Impression/Diagnosis F 33.1. Will increase Prozac to 40 mg q.a.m. Progress Overview Reason for Continued Services in an Intensive Outpatient Program continued impaired mood and.or depression, patient would decompenste at a lower level of care, not at baseline level of functioning and high risk for relapse Treatment To Be Provided medication management and group/individual/rec therapy Discharge Disposition/Level of Care PCP Anticipated Discharge 8-12 weeks Certification Statement Certification Statement I believe this patient requires the services of the Intensive Outpatient Program and that there is reasonable expectation that the patient will make timely and significant practical improvement in the presenting acute symptoms as a result of this Intensive Outpatient Program. I do not believe this patient will benefit from a lesser level of care or could be adequately and appropriately treated in a less restrictive environment. My decision is based on the preceding clinical information.
[2024-05-11 11:05] VITALS: BP 112/80; PULSE 93; RESP 20; TEMP 36.3; O2SAT 99
--- NOTE | 2024-05-13 10:10 | PC.NURSE ---
No nursing group due to MD visit.
[2024-05-13 10:35] VITALS: BP 117/67; PULSE 100; RESP 20; TEMP 36.7; O2SAT 97
[2024-05-18 11:14] VITALS: BP 120/72; PULSE 88; RESP 20; TEMP 36.6; O2SAT 96
== END 2024-05-19 23:59 | disposition home or self-care (01) ==
LOC: CHSSENLIFE 10:00
PROVIDERS: PCP Family Medicine; Visit Provider Psychiatry & Neurology Psychiatry
DX: F33.1 Major depressive disorder, recurrent, moderate (principal)
CPT/HCPCS: 90792; 90853; 99214; G0463

== ENCOUNTER 2024-08-18 10:00 | Outpatient (RCR) | payer MEDICARE, SELFPAY ==
[2024-05-20 00:04] VITALS: BP 120/72; PULSE 88; RESP 20; TEMP 36.6; O2SAT 96
--- NOTE | 2024-05-20 09:38 | PC.NURSE ---
No nursing group due to MD visit.
[2024-05-20 10:20] VITALS: BP 117/68; PULSE 94; RESP 20; TEMP 36.8; O2SAT 98
[2024-05-25 10:19] VITALS: BP 119/60; PULSE 100; RESP 20; TEMP 37.1; O2SAT 97
[2024-05-27 10:25] VITALS: BP 113/65; PULSE 90; RESP 20; TEMP 36.8; O2SAT 97
--- NOTE | 2024-05-27 13:27 | PC.NURSE ---
No nursing group due to MD visit.
[2024-06-01 10:52] VITALS: BP 119/81; PULSE 100; RESP 20; TEMP 36.6; O2SAT 98
--- NOTE | 2024-06-01 14:45 | P.PN_ITS ---
Progress HPI Progress HPI Visit Attended By patient and staff History Obtained From patient Chief Complaint four-week follow-up for depression and anxiety HPI this is a routine follow-up for depression anxiety. Patient is essentially doing well. She continues on Prozac 40 mg q.day., which we increased at her last visit. She feels that is helping. plans to spend [place] with family. No longer on prednisone, finally got all of her taste back since COVID. She also got a flu shot on my recommendation. 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 Average Number of Hours of Sleep 7 Sleep Quality sleep throughout the night Change in PMFSH Releveant to Presenting Illness Yes Describe Changes in PMFSH As above Review of Systems Review of Systems Constitutional Reports denies change Eyes Reports WNL ENT Reports other ( loss of taste, resolved) Respiratory Reports other ( recent COVID infection) Cardiovascular Reports WNL Gastrointestinal Reports other ( IBS) Musculoskeletal Reports other ( osteoarthritis) Neurologic Reports WNL Skin Reports WNL ADL's Reports WNL Exam Physical Exam Review of Lab Studies n/a Hygiene good General Behavior/Attitude Toward Examiner pleasant and cooperative Pain No Psychiatric Exam Level of Consciousness alert Orientation person, place, time and situation Speech normal rate/tone/volume/prosody and coherent Language able to follow instructions or commands Mood less depressed/anxious Affect full range, appropriate and congruent Thought Processes/Form logical, linear and goal directed Thought Content diminished depressive and anxiety symptoms Delusions none Homicidal/Assaultive Ideation none Suicidal Ideation none Hallucinations none Attention/Concentration focused Attention/Concentration Testing Methods observation/interview Short Term Memory Impairment none STM Testing Methods clinical interview (assessment/observation) 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 Memory Impairment none LTM Testing Methods recall of biographical information Intellectual Functioning roughly average Intellectual Functioning Assessed By fund of knowledge and current events Insight fair and improving Insight Assessed By ability to recognize & acknowledge mental illness, ability to understand the implications of mental illness, understanding of treatment options and ability to comply with treatment Judgement fair and improving Judgement Assessed By exploring recent decision-making MMSE n/a Patient Assets patient is willing to accept treatment, able to perform ADLs Patient Liabilities chronic depression and anxiety Assessment and Plan Clinical Impression/Diag Clinical Impression/Diagnosis F 33.1, progressing well. Continue IOP. Monitor medications Progress Overview Reason for Continued Services in an Intensive Outpatient Program continued impaired mood and.or depression, patient would decompenste at a lower level of care, not at baseline level of functioning and high risk for relapse Treatment To Be Provided medication management and group/individual/rec therapy Discharge Disposition/Level of Care PCP Anticipated Discharge 8-12 weeks Certification Statement Certification Statement I believe this patient requires the services of the Intensive Outpatient Program and that there is reasonable expectation that the patient will make timely and significant practical improvement in the presenting acute symptoms as a result of this Intensive Outpatient Program. I do not believe this patient will benefit from a lesser level of care or could be adequately and appropriately treated in a less restrictive environment. My decision is based on the preceding clinical information.
[2024-06-03 10:49] VITALS: BP 110/62; PULSE 87; RESP 20; TEMP 36.6; O2SAT 97
[2024-06-07 10:06] VITALS: BP 120/74; PULSE 88; RESP 20; TEMP 36.9; O2SAT 99
--- NOTE | 2024-06-07 11:05 | PC.NURSE ---
No nursing group due to nurse meeting.
--- NOTE | 2024-06-10 10:09 | PC.NURSE ---
No nursing group due to MD visit.
[2024-06-10 10:25] VITALS: BP 114/68; PULSE 93; RESP 20; TEMP 36.9; O2SAT 99
--- NOTE | 2024-06-16 08:34 | SLSTHERAPY ---
Estella's 06/15 & 06/16/2024 group attendance canceled due to snow; Estella is scheduled to return to group 06/17/2024.
[2024-06-17 10:13] VITALS: BP 120/73; PULSE 90; RESP 20; TEMP 36.7; O2SAT 97
--- NOTE | 2024-06-17 10:58 | PC.NURSE ---
No nursing group due to MD visit.
[2024-06-22 10:29] VITALS: BP 106/64; PULSE 100; RESP 20; TEMP 36.9; O2SAT 97
--- NOTE | 2024-06-24 10:24 | PC.NURSE ---
No nursing group due to MD visit.
[2024-06-24 10:33] VITALS: BP 115/72; PULSE 92; RESP 20; TEMP 36.7; O2SAT 98
--- NOTE | 2024-06-24 12:14 | P.PN_ITS ---
Progress HPI Progress HPI Visit Attended By patient and staff History Obtained From patient Chief Complaint Three week follow-up for depression and anxiety HPI this is a routine follow-up for depression and anxiety. Patient enjoys the program participates well. She continues on Prozac 40 mg q.a.m. but feels that he she is not quite where she wants to be in terms of control of depression symptoms and would like to go to 60 mg. Patient reports that she sleeps too much , And has difficulty with motivation. she does use a light box every day. Patient reports that winter is always difficult for her. 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 Average Number of Hours of Sleep 8 Change in PMFSH Releveant to Presenting Illness No Review of Systems Review of Systems Constitutional Reports denies change Eyes Reports WNL ENT Reports WNL Respiratory Reports WNL Cardiovascular Reports WNL Gastrointestinal Reports other ( IBS) Musculoskeletal Reports other ( osteoarthritis) Neurologic Reports WNL Skin Reports WNL ADL's Reports WNL Exam Physical Exam Review of Lab Studies n/a Hygiene good General Behavior/Attitude Toward Examiner pleasant and cooperative Pain No Psychiatric Exam Level of Consciousness alert Orientation person, place, time and situation Speech normal rate/tone/volume/prosody and coherent Language able to follow instructions or commands Mood mildly depressed Affect full range, appropriate and congruent Thought Processes/Form logical and goal directed Thought Content mild depressive symptoms Delusions none Homicidal/Assaultive Ideation none Suicidal Ideation none Hallucinations none Attention/Concentration focused Attention/Concentration Testing Methods observation/interview Short Term Memory Impairment none STM Testing Methods clinical interview (assessment/observation) Residential Memory Impairment none LTM Testing Methods recall of biographical information Intellectual Functioning roughly average Intellectual Functioning Assessed By current events Insight fair and improving Insight Assessed By ability to recognize & acknowledge mental illness, ability to understand the implications of mental illness, understanding of treatment options and ability to comply with treatment Judgement fair and improving Judgement Assessed By exploring recent decision-making MMSE n/a Patient Assets willing to accept treatment, able to perform ADLs Patient Liabilities chronic depression and anxiety Assessment and Plan Clinical Impression/Diag Clinical Impression/Diagnosis F 33.1, progressing well, continuing depressive symptoms. Continue IOP, increase Prozac to 60 mg q.a.m. Progress Overview Reason for Continued Services in an Intensive Outpatient Program continued impaired mood and.or depression, patient would decompenste at a lower level of care, not at baseline level of functioning and high risk for relapse Treatment To Be Provided medication management and group/individual/rec therapy Discharge Disposition/Level of Care PCP Anticipated Discharge 8-12 weeks Certification Statement Certification Statement I believe this patient requires the services of the Intensive Outpatient Program and that there is reasonable expectation that the patient will make timely and significant practical improvement in the presenting acute symptoms as a result of this Intensive Outpatient Program. I do not believe this patient will benefit from a lesser level of care or could be adequately and appropriately treated in a less restrictive environment. My decision is based on the preceding clinical information.
--- NOTE | 2024-06-24 13:33 | PC.NURSE ---
This nurse called [facility] and spoke with Kianna to increase the patient's Prozac to 60mg PO daily.
[2024-06-29 10:43] VITALS: BP 113/66; PULSE 78; RESP 20; TEMP 37; O2SAT 98
[2024-07-01 10:41] VITALS: BP 110/60; PULSE 88; RESP 20; TEMP 36.6; O2SAT 97
--- NOTE | 2024-07-01 11:09 | PC.NURSE ---
No nursing group due to MD visit.
[2024-07-06 10:35] VITALS: BP 110/76; PULSE 86; RESP 20; TEMP 36.7; O2SAT 96
[2024-07-08 10:26] VITALS: BP 105/76; PULSE 86; RESP 20; TEMP 36.5; O2SAT 98
--- NOTE | 2024-07-08 11:03 | PC.NURSE ---
No nursing group due to MD visit.
[2024-07-13 10:21] VITALS: BP 98/60; PULSE 82; RESP 20; TEMP 36.6; O2SAT 99
--- NOTE | 2024-07-13 15:02 | PC.NURSE ---
No nursing group due to nurse meeting.
--- NOTE | 2024-07-15 09:55 | PC.NURSE ---
No nursing group due to MD visit.
[2024-07-15 10:20] VITALS: BP 122/74; PULSE 78; RESP 20; TEMP 37; O2SAT 98
--- NOTE | 2024-07-15 12:16 | WPDSLSPROGRE ---
Progress HPI Progress HPI Visit Attended By patient and staff History Obtained From patient Chief Complaint Three week follow-up for depression and anxiety HPI this is a routine follow-up for depression and anxiety. Patient enjoys the program and participates well. We increased her Prozac to 60 mg at our last visit and so far she says she does not tell much of a difference but is experiencing no side effects. She does admit that she needs to be on Prozac. Still sleeps a lot, taking naps, which she attributes to boredom, and will sleep about 8 hours a night. Also still smoking, but says she is working on this. As it turns out the [employer] never called her back about the job she was interested in. But is not too upset about this. Uses her light box faithfully daily. GI tract has been relatively calm. Average Number of Hours of Sleep 8 Sleep Quality sleep throughout the night Change in PMFSH Releveant to Presenting Illness No Review of Systems Review of Systems Constitutional Reports denies change Eyes Reports WNL ENT Reports WNL Respiratory Reports WNL Cardiovascular Reports WNL Gastrointestinal Reports other ( IBS, stable) Musculoskeletal Reports other ( osteoarthritis) Neurologic Reports WNL Skin Reports WNL ADL's Reports WNL Exam Physical Exam Review of Lab Studies n/a Hygiene good General Behavior/Attitude Toward Examiner pleasant and cooperative Pain No Psychiatric Exam Level of Consciousness alert Orientation person, place, time and situation Speech normal rate/tone/volume/prosody and coherent Language able to comprehend questions Mood less depressed Affect full range, appropriate and congruent Thought Processes/Form logical, linear and goal directed Thought Content diminished depressive and anxiety symptoms Delusions none Homicidal/Assaultive Ideation none Suicidal Ideation none Hallucinations none Attention/Concentration focused Attention/Concentration Testing Methods observation/interview Short Term Memory Impairment none STM Testing Methods clinical interview (assessment/observation) 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 Memory Impairment none LTM Testing Methods recall of biographical information Intellectual Functioning roughly average Intellectual Functioning Assessed By current events Insight fair and improving Insight Assessed By ability to recognize & acknowledge mental illness, ability to understand the implications of mental illness, understanding of treatment options and ability to comply with treatment Judgement fair and improving Judgement Assessed By exploring recent decision-making MMSE n/a Patient Assets patient is willing to accept treatment, able to perform ADLs Patient Liabilities chronic depression and anxiety Assessment and Plan Clinical Impression/Diag Clinical Impression/Diagnosis F 33.1, progressing well. Await response to Prozac Progress Overview Reason for Continued Services in an Intensive Outpatient Program continued impaired mood and.or depression, patient would decompenste at a lower level of care, not at baseline level of functioning and high risk for relapse Treatment To Be Provided medication management and group/individual/rec therapy Discharge Disposition/Level of Care PCP Anticipated Discharge 8-12 weeks Certification Statement Certification Statement I believe this patient requires the services of the Intensive Outpatient Program and that there is reasonable expectation that the patient will make timely and significant practical improvement in the presenting acute symptoms as a result of this Intensive Outpatient Program. I do not believe this patient will benefit from a lesser level of care or could be adequately and appropriately treated in a less restrictive environment. My decision is based on the preceding clinical information.
[2024-07-20 10:59] VITALS: BP 120/64; PULSE 100; RESP 20; TEMP 36.8; O2SAT 98
[2024-07-22 10:23] VITALS: BP 107/62; PULSE 88; RESP 20; TEMP 36.6; O2SAT 97
--- NOTE | 2024-07-22 10:41 | PC.NURSE ---
No nursing group due to MD visit.
--- NOTE | 2024-07-28 08:07 | SLSTHERAPY ---
Phone call received from Estella canceling 07/28/2024 group attendance due to weather; Estella is scheduled to return to group 07/29/2024.
[2024-07-29 10:04] VITALS: BP 127/62; PULSE 82; RESP 20; TEMP 36.9; O2SAT 98
--- NOTE | 2024-07-29 10:57 | PC.NURSE ---
No nursing group due to MD visit.
[2024-08-03 10:21] VITALS: BP 120/63; PULSE 86; RESP 20; TEMP 36.9; O2SAT 98
[2024-08-05 10:40] VITALS: BP 110/64; PULSE 90; RESP 18; TEMP 36.7; O2SAT 99
--- NOTE | 2024-08-05 12:31 | WPDSLSPROGRE ---
Progress HPI Progress HPI Visit Attended By patient and staff History Obtained From patient Chief Complaint 3 week follow-up for depression and anxiety HPI this is a routine follow-up. At our last visit, we had increased patient's Prozac to 60 mg q.day and she had not noticed a difference at that time but now she says that she thinks it is working. Her energy is improved, she is able to read again without falling asleep. Does not feels anxious, is more relaxed. Also not taking as many naps. Still smoking, but using patches and her smoking has decreased considerably. Continues to use her light box. Attends 2 times a week. Sleeps about 8 hours a night. GI tract has been relatively calm. Average Number of Hours of Sleep 8 Sleep Quality sleep throughout the night Change in PMFSH Releveant to Presenting Illness Yes Describe Changes in PMFSH Improved as above Review of Systems Review of Systems Constitutional Reports denies change Eyes Reports WNL ENT Reports WNL Respiratory Reports WNL Cardiovascular Reports WNL Gastrointestinal Reports other ( IBS) Musculoskeletal Reports other ( osteoarthritis) Neurologic Reports WNL Skin Reports WNL ADL's Reports WNL Exam Physical Exam Review of Lab Studies n/a Hygiene good General Behavior/Attitude Toward Examiner pleasant and cooperative Pain No Psychiatric Exam Level of Consciousness alert Orientation person, place, time and situation Speech normal rate/tone/volume/prosody and coherent Language able to follow instructions or commands Mood less anxious/depressed Affect full range, appropriate and congruent Thought Processes/Form logical, linear and goal directed Thought Content diminished depressive and anxiety symptoms Delusions none Homicidal/Assaultive Ideation none Suicidal Ideation none Hallucinations none Attention/Concentration focused Attention/Concentration Testing Methods observation/interview Short Term Memory Impairment none STM Testing Methods clinical interview (assessment/observation) 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 Memory Impairment none LTM Testing Methods recall of historical events Intellectual Functioning roughly average Intellectual Functioning Assessed By fund of knowledge Insight fair and improving Insight Assessed By ability to recognize & acknowledge mental illness, ability to understand the implications of mental illness, understanding of treatment options and ability to comply with treatment Judgement fair Judgement Assessed By exploring recent decision-making MMSE n/a Patient Assets willing to accept treatment, able to perform ADLs Patient Liabilities chronic depression and anxiety Assessment and Plan Clinical Impression/Diag Clinical Impression/Diagnosis F 33.1, progressing well. Continue IOP, monitor meds Progress Overview Reason for Continued Services in an Intensive Outpatient Program continued impaired mood and.or depression, patient would decompenste at a lower level of care, not at baseline level of functioning and high risk for relapse Treatment To Be Provided medication management and group/individual/rec therapy Discharge Disposition/Level of Care PCP Anticipated Discharge 8-12 weeks Certification Statement Certification Statement I believe this patient requires the services of the Intensive Outpatient Program and that there is reasonable expectation that the patient will make timely and significant practical improvement in the presenting acute symptoms as a result of this Intensive Outpatient Program. I do not believe this patient will benefit from a lesser level of care or could be adequately and appropriately treated in a less restrictive environment. My decision is based on the preceding clinical information.
--- NOTE | 2024-08-05 14:05 | PC.NURSE ---
No nursing group due to MD visit.
[2024-08-10 10:20] VITALS: BP 120/68; PULSE 97; RESP 20; TEMP 37; O2SAT 99
[2024-08-12 09:31] VITALS: BP 131/74; PULSE 102; RESP 20; TEMP 36.2; O2SAT 98
--- NOTE | 2024-08-12 09:34 | PC.NURSE ---
No nursing group due to MD visit.
[2024-08-17 14:49] VITALS: BP 115/63; PULSE 70; RESP 20; TEMP 36.3; O2SAT 95
--- NOTE | 2024-08-17 14:49 | PC.NURSE ---
No nursing group due to nurse meeting.
[2024-08-18 09:41] VITALS: BP 108/67; PULSE 84; RESP 18; TEMP 36.1; O2SAT 96
== END 2024-08-18 23:59 | disposition home or self-care (01) ==
LOC: CHSSENLIFE 10:00
PROVIDERS: PCP Family Medicine; Visit Provider Psychiatry & Neurology Psychiatry
DX: F33.1 Major depressive disorder, recurrent, moderate (principal)
CPT/HCPCS: 90853; 99213; 99214; G0463

== ENCOUNTER 2024-11-18 10:00 | Outpatient (RCR) | payer MEDICARE, SELFPAY ==
[2024-08-19 00:03] VITALS: BP 108/67; PULSE 84; RESP 18; TEMP 36.1; O2SAT 96
[2024-08-24 09:33] VITALS: BP 133/72; PULSE 100; RESP 20; TEMP 36.6; O2SAT 97
[2024-08-26 09:34] VITALS: BP 125/65; PULSE 97; RESP 20; TEMP 36.5; O2SAT 97
--- NOTE | 2024-08-26 10:12 | PC.NURSE ---
No nursing group due to MD visit.
--- NOTE | 2024-08-26 10:41 | WPDSLSPROGRE ---
Progress HPI Progress HPI Visit Attended By patient and staff History Obtained From patient Chief Complaint don't write this down HPI Patient is being seen for depression and anxiety. She enjoys the program and participates well. They are working on various issues such as coping skills, anxiety reduction, etc.. She said recently she was getting ready to give her cat its medicine and she had her own medicine laid out as well. As it turns out, she took the cat's thyroid medicine by mistake but experienced no ill affects, and actually had a good laugh over it. Doing very well on Prozac 60 mg q.a.m.. She also continues to use nicotine patches, and smokes very infrequently. No recent GI issues. Energy and concentration are improved and she does not have to take naps. Still uses her light box, but will probably not need to as spring progresses. Attends 2 times a week. Sleeps about 8 hours a night. Average Number of Hours of Sleep 8 Sleep Quality sleep throughout the night Change in PMFSH Releveant to Presenting Illness No Review of Systems Review of Systems Constitutional Reports denies change Eyes Reports WNL ENT Reports WNL Respiratory Reports WNL Cardiovascular Reports WNL Gastrointestinal Reports other ( IBS) Musculoskeletal Reports other ( osteoarthritis) Neurologic Reports WNL Skin Reports WNL ADL's Reports WNL and Reports independent Exam Physical Exam Review of Lab Studies n/a Hygiene good General Behavior/Attitude Toward Examiner pleasant and cooperative Pain No Psychiatric Exam Level of Consciousness alert Orientation person, place, time and situation Speech normal rate/tone/volume/prosody and coherent Language able to comprehend questions Mood less anxious Affect full range, appropriate and congruent Thought Processes/Form logical, linear and goal directed Thought Content diminished depressive and anxiety symptoms Delusions none Homicidal/Assaultive Ideation none Suicidal Ideation none Hallucinations none Attention/Concentration focused Attention/Concentration Testing Methods observation/interview Short Term Memory Impairment none STM Testing Methods clinical interview (assessment/observation) [facility] Memory Impairment none LTM Testing Methods recall of historical events Intellectual Functioning roughly average Intellectual Functioning Assessed By fund of knowledge and current events Insight fair and improving Insight Assessed By ability to recognize & acknowledge mental illness, ability to understand the implications of mental illness, understanding of treatment options and ability to comply with treatment Judgement fair and improving Judgement Assessed By exploring recent decision-making and exploring solutions to hyothetical situations/practical dilemmas MMSE n/a Patient Assets willing to accept treatment, able to perform ADLs Patient Liabilities chronic psychiatric illness Assessment and Plan Clinical Impression/Diag Clinical Impression/Diagnosis F 33.1, progressing well. Continue IOP, monitor meds Progress Overview Reason for Continued Services in an Intensive Outpatient Program continued impaired mood and.or depression, patient would decompenste at a lower level of care and not at baseline level of functioning Treatment To Be Provided medication management and group/individual/rec therapy Discharge Disposition/Level of Care PCP Anticipated Discharge 6 weeks Certification Statement Certification Statement I believe this patient requires the services of the Intensive Outpatient Program and that there is reasonable expectation that the patient will make timely and significant practical improvement in the presenting acute symptoms as a result of this Intensive Outpatient Program. I do not believe this patient will benefit from a lesser level of care or could be adequately and appropriately treated in a less restrictive environment. My decision is based on the preceding clinical information.
[2024-08-31 09:32] VITALS: BP 130/66; PULSE 102; RESP 20; TEMP 36.3; O2SAT 97
--- NOTE | 2024-08-31 13:06 | PC.NURSE ---
This nurse called [facility] in [place] and spoke with Kianna to refill the patient's Fluoxetine 60mg daily X 30 days.
[2024-09-02 09:58] VITALS: BP 106/73; PULSE 100; RESP 18; TEMP 36.3; O2SAT 99
--- NOTE | 2024-09-02 10:11 | PC.NURSE ---
No nursing group due to MD visit.
[2024-09-07 10:56] VITALS: BP 120/80; PULSE 95; RESP 20; TEMP 36.4; O2SAT 95
[2024-09-09 10:21] VITALS: BP 112/64; PULSE 88; RESP 20; TEMP 37.1; O2SAT 98
--- NOTE | 2024-09-09 10:54 | P.PN_ITS ---
Progress HPI Progress HPI Visit Attended By patient and staff History Obtained From patient Chief Complaint OK HPI This is a routine visit for depression anxiety. Patient enjoys the program participates well. She is working on various issues such as reframing negative thoughts, coping skills, anxiety reduction, etc.. Patient continues on Prozac 60 mg q.a.m.. Also continues to use nicotine patches, and most days is not smoke but over the weekend she took her patch off and smoked a few cigarettes with a friend. No recent GI issues. Using her light box daily. Attends 2 times a week. Sleeps about 8 hours a night. Average Number of Hours of Sleep 8 Sleep Quality sleep throughout the night Change in PMFSH Releveant to Presenting Illness No Review of Systems Review of Systems Constitutional Reports denies change Eyes Reports WNL ENT Reports WNL Respiratory Reports WNL Cardiovascular Reports WNL Gastrointestinal Reports other ( IBS) Musculoskeletal Reports other ( osteoarthritis) Neurologic Reports WNL Skin Reports WNL ADL's Reports WNL and Reports independent Exam Physical Exam Review of Lab Studies n/a Hygiene good General Behavior/Attitude Toward Examiner pleasant and cooperative Pain No Psychiatric Exam Level of Consciousness alert Orientation person, place, time and situation Speech normal rate/tone/volume/prosody and coherent Language able to comprehend questions Mood okay Affect full range, appropriate and congruent Thought Processes/Form logical, linear and goal directed Thought Content diminished depressive and anxiety symptoms Delusions none Homicidal/Assaultive Ideation none Suicidal Ideation none Hallucinations none Attention/Concentration focused Attention/Concentration Testing Methods observation/interview Short Term Memory Impairment none STM Testing Methods clinical interview (assessment/observation) Skilled Nursing Memory Impairment none LTM Testing Methods recall of biographical information Intellectual Functioning roughly average Intellectual Functioning Assessed By fund of knowledge and current events Insight fair and improving Insight Assessed By ability to recognize & acknowledge mental illness, ability to understand the implications of mental illness, understanding of treatment options and ability to comply with treatment Judgement fair and improving Judgement Assessed By exploring recent decision-making MMSE n/a Patient Assets willing to accept treatment, able to perform ADLs Patient Liabilities chronic psychiatric illness Assessment and Plan Clinical Impression/Diag Clinical Impression/Diagnosis F 33.1, progressing well. Continue IOP, monitor meds Progress Overview Reason for Continued Services in an Intensive Outpatient Program continued impaired mood and.or depression, patient would decompenste at a lower level of care, not at baseline level of functioning and high risk for relapse Treatment To Be Provided medication management and group/individual/rec therapy Discharge Disposition/Level of Care PCP Anticipated Discharge 4-6 weeks Certification Statement Certification Statement I believe this patient requires the services of the Intensive Outpatient Program and that there is reasonable expectation that the patient will make timely and significant practical improvement in the presenting acute symptoms as a result of this Intensive Outpatient Program. I do not believe this patient will benefit from a lesser level of care or could be adequately and appropriately treated in a less restrictive environment. My decision is based on the preceding clinical information.
--- NOTE | 2024-09-09 12:53 | PC.NURSE ---
No nursing group due to MD visit.
[2024-09-13 10:56] VITALS: BP 116/78; PULSE 90; RESP 18; TEMP 36.7; O2SAT 96
[2024-09-16 10:10] VITALS: BP 116/70; PULSE 95; RESP 18; TEMP 36.2; O2SAT 96
--- NOTE | 2024-09-16 11:06 | PC.NURSE ---
No nursing group due to MD visit.
[2024-09-21 10:44] VITALS: BP 109/67; PULSE 93; RESP 20; TEMP 36.7; O2SAT 97
[2024-09-23 10:14] VITALS: BP 112/78; PULSE 86; RESP 20; TEMP 36.9; O2SAT 97
[2024-09-28 10:07] VITALS: BP 126/77; PULSE 80; RESP 20; TEMP 36.8; O2SAT 96
--- NOTE | 2024-09-30 09:18 | PC.NURSE ---
No nursing group due to MD visit.
[2024-09-30 10:31] VITALS: BP 116/78; PULSE 90; RESP 20; TEMP 36.9; O2SAT 97
--- NOTE | 2024-09-30 11:20 | P.PN_ITS ---
Progress HPI Progress HPI Visit Attended By patient and staff History Obtained From patient Patient Stated Chief Complaint Just fine HPI this is a routine visit for depression anxiety. Patient enjoys the program and participates well. She says that recently she went to her PCP for a sore throat, and it was thought this was a swollen salivary gland. At that time she was placed on amoxicillin but experience significant diarrhea. She said she continue take the medication and this eventually subsided. She still smokes only occasionally, and says that the nicotine patches are helping considerably, states that they keep her from getting agitated. She also is scheduled to have a low-dose lung scan as she does this yearly. Continues on Prozac 60 mg q.a.m., uses her light box daily. Attends 2 times a week, sleeps about 8 hours a night Average Number of Hours of Sleep 8 Sleep Quality sleep throughout the night Change in PMFSH Releveant to Presenting Illness Yes Describe Changes in PMFSH as above Review of Systems 2 Review of Systems Constitutional Reports denies change Eyes Reports WNL ENT Reports other ( swollen salivary gland) Respiratory Reports WNL Cardiovascular Reports WNL Gastrointestinal Reports other ( IBS) Musculoskeletal Reports other ( osteoarthritis) Neurologic Reports WNL Skin Reports WNL ADL's Reports independent Exam Physical Exam Review of Lab Studies n/a Hygiene good General Behavior/Attitude Toward Examiner pleasant and cooperative Pain No Psychiatric Exam Level of Consciousness alert Orientation person, place, time and situation Speech normal rate/tone/volume/prosody and coherent Language able to follow instructions or commands Affect appropriate and congruent Thought Processes/Form logical, linear and goal directed Thought Content diminished depressive and anxiety symptoms Delusions none Homicidal/Assaultive Ideation none Suicidal Ideation none Hallucinations none Attention/Concentration focused Attention/Concentration Testing Methods observation/interview Short Term Memory Impairment none STM Testing Methods clinical interview (assessment/observation) 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 Memory Impairment none LTM Testing Methods recall of biographical information Intellectual Functioning roughly average Intellectual Functioning Assessed By current events Insight fair and improving Insight Assessed By ability to recognize & acknowledge mental illness, ability to understand the implications of mental illness, understanding of treatment options and ability to comply with treatment Judgement fair and improving Judgement Assessed By exploring recent decision-making MMSE n/a Patient Assets willing to accept treatment, able to perform ADLs Patient Liabilities chronic psychiatric illness, nicotine dependence Assessment and Plan Clinical Impression/Diag Clinical Impression/Diagnosis F 33.1, progressing well. Continue IOP, monitor meds Progress Overview Reason for Continued Services in an Intensive Outpatient Program continued impaired mood and.or depression, patient would decompenste at a lower level of care, not at baseline level of functioning and high risk for relapse Treatment To Be Provided medication management and group/individual/rec therapy Discharge Disposition/Level of Care PCP Anticipated Discharge 4-6 weeks
[2024-10-05 10:12] VITALS: BP 116/72; PULSE 90; RESP 20; TEMP 36.9; O2SAT 96
[2024-10-07 10:08] VITALS: BP 120/64; PULSE 90; RESP 20; TEMP 36.8; O2SAT 97
[2024-10-12 10:15] VITALS: BP 107/60; PULSE 84; RESP 20; TEMP 36.2; O2SAT 96
[2024-10-14 10:17] VITALS: BP 127/73; PULSE 82; RESP 20; TEMP 36.9; O2SAT 97
--- NOTE | 2024-10-14 10:19 | PC.NURSE ---
No nursing group due to MD visit.
[2024-10-19 10:12] VITALS: BP 119/68; PULSE 74; RESP 18; TEMP 37; O2SAT 98
--- NOTE | 2024-10-19 13:57 | PC.NURSE ---
No nursing group due to MD visit.
--- NOTE | 2024-10-19 13:58 | PC.NURSE ---
No nursing group due to nurse meeting.
[2024-10-21 10:01] VITALS: BP 116/65; PULSE 92; RESP 18; TEMP 36.8; O2SAT 96
--- NOTE | 2024-10-21 11:26 | WPDSLSPROGRE ---
Progress HPI Progress HPI Visit Attended By patient and staff History Obtained From patient Patient Stated Chief Complaint fine HPI this is a routine follow-up for depression and anxiety. Patient enjoys the program participates well. Had a flare-up of diverticulitis and went to her PCP yesterday to get Cipro. Patient also put herself on a liquid diet as this seems to help her whenever she has a a flare-up of this. She is excited about going to [place] next week to visit her son in [address]. In therapy she is working on coping skills for depression among other topics. Recent lung scan was normal. Continues on Prozac 60 mg q.a.m., uses her light box daily. Attends 2 times a week. Average Number of Hours of Sleep 8 Sleep Quality sleep throughout the night Change in PMFSH Releveant to Presenting Illness Yes Describe Changes in PMFSH Diverticulitis as above Review of Systems Review of Systems Constitutional Reports denies change Eyes Reports WNL ENT Reports WNL Respiratory Reports WNL Cardiovascular Reports WNL Gastrointestinal Reports other ( IBS, diverticulitis) Musculoskeletal Reports other ( osteoarthritis) Neurologic Reports WNL Skin Reports WNL ADL's Reports WNL Exam Physical Exam Review of Lab Studies n/a Hygiene good General Behavior/Attitude Toward Examiner pleasant and cooperative Pain No Psychiatric Exam Level of Consciousness alert Orientation person, place, time and situation Speech normal rate/tone/volume/prosody and coherent Language able to follow instructions or commands Mood fine Affect full range, appropriate and congruent Thought Processes/Form logical, linear and goal directed Thought Content diminished depressive symptoms Delusions none Homicidal/Assaultive Ideation none Suicidal Ideation none Hallucinations none Attention/Concentration focused Attention/Concentration Testing Methods observation/interview Short Term Memory Impairment none STM Testing Methods clinical interview (assessment/observation) Longterm Memory Impairment none LTM Testing Methods recall of biographical information Intellectual Functioning roughly average Intellectual Functioning Assessed By fund of knowledge Insight fair and improving Insight Assessed By ability to recognize & acknowledge mental illness, ability to understand the implications of mental illness, understanding of treatment options and ability to comply with treatment Judgement fair and improving Judgement Assessed By exploring recent decision-making MMSE n/a Patient Assets able to perform ADLs, willing to accept treatment Patient Liabilities chronic psychiatric illness Assessment and Plan Clinical Impression/Diag Clinical Impression/Diagnosis F 33.1, progressing well, Continue IOP, monitor meds Progress Overview Reason for Continued Services in an Intensive Outpatient Program continued impaired mood and.or depression, patient would decompenste at a lower level of care, not at baseline level of functioning and high risk for relapse Treatment To Be Provided medication management and group/individual/rec therapy Discharge Disposition/Level of Care PCP Anticipated Discharge 4-6 weeks
[2024-10-26 10:02] VITALS: BP 124/70; PULSE 92; RESP 20; TEMP 36.6; O2SAT 96
--- NOTE | 2024-10-26 14:01 | SLSTHERAPY ---
Estella canceled 10/28/2024 group attendance due to out of state trip; Estella is scheduled to return to group 11/02/2024.
[2024-11-02 10:02] VITALS: BP 110/72; PULSE 90; RESP 20; TEMP 37; O2SAT 98
[2024-11-04 09:55] VITALS: BP 124/72; PULSE 82; RESP 18; TEMP 36.9; O2SAT 97
--- NOTE | 2024-11-04 10:40 | PC.NURSE ---
No nursing group due to MD visit.
--- NOTE | 2024-11-09 08:02 | SLSTHERAPY ---
Estella phoned canceling 11/09/2024 group attendance due to illness; Estella is scheduled to return to group 11/10/2024.
[2024-11-10 10:10] VITALS: BP 120/70; PULSE 85; RESP 18; TEMP 36.6; O2SAT 97
--- NOTE | 2024-11-10 10:28 | PC.NURSE ---
No nursing group due to MD visit.
--- NOTE | 2024-11-10 14:09 | P.PN_ITS ---
Progress HPI Progress HPI Visit Attended By patient and staff History Obtained From patient Patient Stated Chief Complaint off and on HPI this is a routine follow-up for depression anxiety. Patient enjoys the program participates well. She is attending 2 days a week and they are working on topics such as anxiety. She enjoyed her trip to visit her grandson in [place], and when she came back home when out to eat with a friend, but then later developed abdominal pain and after she went to the doctor this week it turns out that she has diverticulitis and is back on antibiotics. This is very frustrating for her, as she usually tries to watch what she eats, but there are several things for her that can aggravate this. Recent lung scan was normal. Continues on Prozac 60 mg q.a.m., uses her light box daily. Still smokes, but decreased overall. She feels that when she gets bored is when she is most at risk for smoking. When she is at with her family or friends and no one is smoking, she does not need to smoke. Average Number of Hours of Sleep 8 Sleep Quality sleep throughout the night Change in [facility] Releveant to Presenting Illness Yes Describe Changes in [facility] Diverticulitis Review of Systems Review of Systems Constitutional Reports other ( infection) Eyes Reports WNL ENT Reports WNL Respiratory Reports WNL Cardiovascular Reports WNL Gastrointestinal Reports other ( IBS, diverticulitis) Musculoskeletal Reports other ( osteoarthritis) Neurologic Reports WNL Skin Reports WNL ADL's Reports WNL Exam Physical Exam Review of Lab Studies n/a Hygiene good General Behavior/Attitude Toward Examiner pleasant and cooperative Pain Yes Pain Location abdomen Pain Characteristics acute and aching Psychiatric Exam Level of Consciousness alert Orientation person, place and time Speech normal rate/tone/volume/prosody and coherent Language able to follow instructions or commands Mood less depressed/anxious Affect full range, appropriate and congruent Thought Processes/Form logical, linear and goal directed Thought Content diminished anxiety and depressive symptoms Delusions none Homicidal/Assaultive Ideation none Suicidal Ideation none Hallucinations none Attention/Concentration focused Attention/Concentration Testing Methods observation/interview Short Term Memory Impairment none STM Testing Methods clinical interview (assessment/observation) 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 Memory Impairment none LTM Testing Methods recall of biographical information Intellectual Functioning roughly average Intellectual Functioning Assessed By current events Insight fair and improving Insight Assessed By ability to recognize & acknowledge mental illness, ability to understand the implications of mental illness, understanding of treatment options and ability to comply with treatment Judgement fair and improving Judgement Assessed By exploring recent decision-making MMSE n/a Patient Assets able to perform ADLs, willing to accept treatment Patient Liabilities chronic psychiatric illness Assessment and Plan Clinical Impression/Diag Clinical Impression/Diagnosis F 33.1, progressing well. Continue IOP, monitor meds Progress Overview Reason for Continued Services in an Intensive Outpatient Program continued impaired mood and.or depression, patient would decompenste at a lower level of care, not at baseline level of functioning and high risk for relapse Treatment To Be Provided medication management and group/individual/rec therapy Discharge Disposition/Level of Care outpatient therapy Anticipated Discharge 4-6 weeks
[2024-11-11 10:05] VITALS: BP 119/76; PULSE 94; RESP 20; TEMP 36.7; O2SAT 96
[2024-11-16 10:27] VITALS: BP 115/72; PULSE 83; RESP 18; TEMP 36.8; O2SAT 96
[2024-11-18 10:11] VITALS: BP 114/67; PULSE 91; RESP 18; TEMP 36.6; O2SAT 97
--- NOTE | 2024-11-18 11:24 | PC.NURSE ---
No nursing group due to MD visit.
== END 2024-11-22 23:59 | disposition home or self-care (01) ==
LOC: CHSSENLIFE 10:00
PROVIDERS: PCP Family Medicine; Visit Provider Psychiatry & Neurology Psychiatry
DX: F33.1 Major depressive disorder, recurrent, moderate (principal)
CPT/HCPCS: 90853; 99213; G0463

== ENCOUNTER 2025-02-17 10:00 | Outpatient (RCR) | payer MEDICARE, SELFPAY ==
[2024-11-23 00:02] VITALS: BP 114/67; PULSE 91; RESP 18; TEMP 36.6; O2SAT 97
[2024-11-23 10:16] VITALS: BP 112/73; PULSE 90; RESP 18; TEMP 36.7; O2SAT 96
--- NOTE | 2024-11-25 09:44 | PC.NURSE ---
No nursing group due to MD visit.
[2024-11-25 10:29] VITALS: BP 110/69; PULSE 88; RESP 18; TEMP 36.8; O2SAT 96
[2024-11-30 10:28] VITALS: BP 110/70; PULSE 84; RESP 18; TEMP 36.9; O2SAT 95
--- NOTE | 2024-12-02 10:06 | PC.NURSE ---
No nursing group due to MD visit.
[2024-12-02 10:42] VITALS: BP 127/72; PULSE 92; RESP 18; TEMP 36.7; O2SAT 96
--- NOTE | 2024-12-02 12:32 | WPDSLSPROGRE ---
Progress HPI Progress HPI Visit Attended By patient and staff History Obtained From patient Patient Stated Chief Complaint nothing HPI this is a routine follow-up for depression anxiety. Patient feels she is doing well. Attends 2 days a week, working on topics such as anxiety. Her grandson is going to be coming to [place] to visit and patient is excited about this. She has recovered from her episode of diverticulitis. Continues Prozac 60 mg q.a.m., uses her light box daily. Still smokes, but decreased overall. She feels that boredom puts her most at risk for smoking. Average Number of Hours of Sleep 8 Sleep Quality sleep throughout the night Change in PMFSH Releveant to Presenting Illness No Review of Systems Review of Systems Constitutional Reports denies change Eyes Reports WNL ENT Reports WNL Respiratory Reports WNL Cardiovascular Reports WNL Gastrointestinal Reports other ( Diverticulitis, resolved) Musculoskeletal Reports other ( osteoarthritis) Neurologic Reports WNL Skin Reports WNL ADL's Reports WNL and Reports independent Exam Physical Exam Review of Lab Studies n/a Hygiene good General Behavior/Attitude Toward Examiner pleasant and cooperative Pain No Psychiatric Exam Level of Consciousness alert Orientation person, place, time and situation Speech normal rate/tone/volume/prosody and coherent Language able to follow instructions or commands Mood less depressed Affect full range, appropriate and congruent Thought Processes/Form logical, linear and goal directed Thought Content diminished depressive and anxiety symptoms Delusions none Homicidal/Assaultive Ideation none Suicidal Ideation none Hallucinations none Attention/Concentration focused Attention/Concentration Testing Methods observation/interview Short Term Memory Impairment none STM Testing Methods clinical interview (assessment/observation) Detention Memory Impairment none LTM Testing Methods recall of biographical information Intellectual Functioning roughly average Intellectual Functioning Assessed By fund of knowledge Insight fair and improving Insight Assessed By ability to recognize & acknowledge mental illness, ability to understand the implications of mental illness, understanding of treatment options and ability to comply with treatment Judgement fair and improving Judgement Assessed By exploring recent decision-making MMSE n/a Patient Assets able to perform ADLs, willing to accept treatment Patient Liabilities chronic psychiatric illness Assessment and Plan Clinical Impression/Diag Clinical Impression/Diagnosis F 33.1, progressing well, continue IOP, monitor meds Progress Overview Reason for Continued Services in an Intensive Outpatient Program continued impaired mood and.or depression, patient would decompenste at a lower level of care, not at baseline level of functioning and high risk for relapse Treatment To Be Provided medication management and group/individual/rec therapy Discharge Disposition/Level of Care PCP Anticipated Discharge 4-6 weeks
[2024-12-07 10:26] VITALS: BP 112/70; PULSE 94; RESP 18; TEMP 36.9; O2SAT 96
[2024-12-09 10:01] VITALS: BP 110/76; PULSE 82; RESP 18; TEMP 36.8; O2SAT 96
--- NOTE | 2024-12-09 10:31 | PC.NURSE ---
No nursing group due to MD visit.
[2024-12-14 10:04] VITALS: BP 112/69; PULSE 98; RESP 18; TEMP 36.8; O2SAT 96
--- NOTE | 2024-12-16 10:11 | PC.NURSE ---
No nursing group due to MD visit.
[2024-12-16 10:24] VITALS: BP 124/66; PULSE 88; RESP 18; TEMP 36.8; O2SAT 97
[2024-12-21 10:23] VITALS: BP 110/72; PULSE 83; RESP 18; TEMP 36.8; O2SAT 97
[2024-12-22 10:25] VITALS: BP 110/64; PULSE 72; RESP 18; TEMP 36.5; O2SAT 97
--- NOTE | 2024-12-22 13:41 | WPDSLSPROGRE ---
Progress HPI Progress HPI Visit Attended By patient and staff History Obtained From patient Patient Stated Chief Complaint I'm OK HPI this is a routine follow-up for depression and anxiety. Overall patient feels she was doing well, her main complaint is swelling in her left jaw, which she suspects may be due to a blocked salivary gland as she had similar symptoms on the right side, with a CT being unremarkable. However she has not had the left-side checked. She does have an ENT specialist who she sees occasionally. Also complains of dry mouth. Enjoys program and participates well. Working on strategies to alleviate loneliness and boredom. Still smokes, but has cut down, and she gets a yearly lung scan. Continues Prozac 60 mg q.a.m. and uses her light box. Average Number of Hours of Sleep 8 Sleep Quality sleep throughout the night Change in PMFSH Releveant to Presenting Illness Yes Describe Changes in PMFSH Left jaw swelling as above Review of Systems Review of Systems Constitutional Reports denies change Eyes Reports WNL ENT Reports WNL Respiratory Reports WNL Cardiovascular Reports WNL Gastrointestinal Reports other ( diverticulitis, resolved. IBS) Musculoskeletal Reports WNL Neurologic Reports WNL Skin Reports WNL ADL's Reports WNL and Reports independent Exam Physical Exam Review of Lab Studies n/a Hygiene good General Behavior/Attitude Toward Examiner pleasant and cooperative Pain Yes Pain Location left jaw Pain Characteristics acute and aching Psychiatric Exam Level of Consciousness alert Orientation person, place, time and situation Speech normal rate/tone/volume/prosody and coherent Language able to comprehend questions Mood less depressed Affect full range, appropriate and congruent Thought Processes/Form logical, linear and goal directed Thought Content diminished depressive and anxiety symptoms Delusions none Homicidal/Assaultive Ideation none Suicidal Ideation none Hallucinations none Attention/Concentration focused Attention/Concentration Testing Methods observation/interview Short Term Memory Impairment none STM Testing Methods clinical interview (assessment/observation) Long-Term Memory Impairment none LTM Testing Methods recall of biographical information Intellectual Functioning roughly average Intellectual Functioning Assessed By fund of knowledge Insight fair and improving Insight Assessed By ability to recognize & acknowledge mental illness, ability to understand the implications of mental illness, understanding of treatment options and ability to comply with treatment Judgement fair Judgement Assessed By exploring recent decision-making MMSE n/a Patient Assets ability to perform ADLs, willing to accept treatment Patient Liabilities chronic psychiatric illness Assessment and Plan Clinical Impression/Diag Clinical Impression/Diagnosis F 33.1. Continuing to work on strategies to alleviate loneliness and boredom, reinforcing anxiety reduction techniques. Continue Prozac 40 mg q.a.m. Progress Overview Reason for Continued Services in an Intensive Outpatient Program continued impaired mood and.or depression, patient would decompenste at a lower level of care, not at baseline level of functioning and high risk for relapse Treatment To Be Provided medication management Discharge Disposition/Level of Care PCP Anticipated Discharge 4-6 weeks
[2024-12-28 10:24] VITALS: BP 120/72; PULSE 90; RESP 20; TEMP 36.7; O2SAT 96
--- NOTE | 2024-12-30 10:13 | PC.NURSE ---
No nursing group due to MD visit.
[2024-12-30 10:36] VITALS: BP 116/75; PULSE 90; RESP 20; TEMP 36.8; O2SAT 97
[2025-01-04 10:29] VITALS: BP 110/70; PULSE 86; RESP 18; TEMP 36.6; O2SAT 97
--- NOTE | 2025-01-06 09:33 | PC.NURSE ---
No nursing group due to MD visit.
[2025-01-06 10:30] VITALS: BP 114/75; PULSE 90; RESP 18; TEMP 37.1; O2SAT 96
[2025-01-11 10:07] VITALS: BP 120/76; PULSE 88; RESP 20; TEMP 36.8; O2SAT 95
--- NOTE | 2025-01-12 15:10 | SLSTHERAPY ---
Estella canceled attendance for 01/13/2025 group & doctor appointment due to medical complications & need for surgery for detached retina; Estella is scheduled to return to group 01/18/2025.
--- NOTE | 2025-01-14 07:47 | SLSTHERAPY ---
Phone call received from Estella informing staff of absenteeism from group 01/18 & 01/20/2025 due to recovery from surgery; confirmed with Estella return date of 01/25/2025 & doctor appointment 01/27/2025.
[2025-01-25 10:32] VITALS: BP 115/80; PULSE 90; RESP 20; TEMP 36.7; O2SAT 96
--- NOTE | 2025-01-27 10:05 | PC.NURSE ---
No nursing group due to MD visit.
[2025-01-27 10:19] VITALS: BP 122/74; PULSE 86; RESP 20; TEMP 36.6; O2SAT 97
--- NOTE | 2025-01-27 12:26 | P.PN_ITS ---
Progress HPI Progress HPI Visit Attended By patient and staff History Obtained From patient Patient Stated Chief Complaint not so good HPI This is a 5 week follow-up. Patient is not been able to to see me due to the fact that she has had medical issues. 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 She still cannot see out of it, and says that she will have to wait 3 weeks before this resolves. Continues on Prozac 60 mg q.a.m. but not using her light box now as she was told not to do this while her eye is recovering. Also continues to have swelling in her left jaw but is waiting for her vision to resolve before she addresses this. Her grandson came home to visit, and her birthday is next week, so this has helped lift her spirits somewhat. Still smokes. She does get a yearly lung scan. Sees ENT occasionally. No significant GI symptoms. Average Number of Hours of Sleep 8 Sleep Quality sleep throughout the night Change in PMFSH Releveant to Presenting Illness Yes Describe Changes in PMFSH Detached retina as above Review of Systems Review of Systems Constitutional Reports denies change Eyes Reports other ( detached retina) ENT Reports other ( swollen jaw) Respiratory Reports WNL Cardiovascular Reports WNL Gastrointestinal Reports other ( IBS) Musculoskeletal Reports WNL Neurologic Reports WNL Skin Reports WNL ADL's Reports WNL and Reports independent Exam Physical Exam Review of Lab Studies n/a Significant Lab Findings n/a Hygiene good General Behavior/Attitude Toward Examiner pleasant and cooperative Pain No Psychiatric Exam Level of Consciousness alert Orientation person, place, time and situation Speech normal rate/tone/volume/prosody and coherent Language able to follow instructions or commands Mood not so good Affect full range, appropriate and congruent Thought Processes/Form logical, linear and goal directed Thought Content anxiety symptoms Delusions none Homicidal/Assaultive Ideation none Suicidal Ideation none Hallucinations none Attention/Concentration focused Attention/Concentration Testing Methods observation/interview Short Term Memory Impairment none STM Testing Methods clinical interview (assessment/observation) Senior Care Memory Impairment none LTM Testing Methods recall of biographical information Intellectual Functioning roughly average Intellectual Functioning Assessed By current events Insight fair Insight Assessed By ability to recognize & acknowledge mental illness, ability to understand the implications of mental illness, understanding of treatment options and ability to comply with treatment Judgement fair Judgement Assessed By exploring recent decision-making MMSE n/a Patient Assets able to perform ADLs, willing to accept treatment Patient Liabilities chronic psychiatric illness, recent eye surgery Assessment and Plan Clinical Impression/Diag Clinical Impression/Diagnosis F 33.1, progressing well. Recent eye surgery Progress Overview Reason for Continued Services in an Intensive Outpatient Program continued impaired mood and.or depression, patient would decompenste at a lower level of care, not at baseline level of functioning and high risk for relapse Treatment To Be Provided medication management and group/individual/rec therapy Discharge Disposition/Level of Care PCP Anticipated Discharge 4-6 weeks
[2025-02-01 10:27] VITALS: BP 109/70; PULSE 94; RESP 20; TEMP 36.7; O2SAT 96
--- NOTE | 2025-02-03 09:41 | PC.NURSE ---
No nursing group due to MD visit.
[2025-02-03 10:22] VITALS: BP 102/60; PULSE 88; RESP 18; TEMP 37; O2SAT 96
[2025-02-08 10:18] VITALS: BP 110/68; PULSE 88; RESP 20; TEMP 36.7; O2SAT 96
--- NOTE | 2025-02-10 09:38 | PC.NURSE ---
No nursing group due to MD visit.
[2025-02-10 10:14] VITALS: BP 109/63; PULSE 82; RESP 20; TEMP 37.1; O2SAT 98
[2025-02-15 10:17] VITALS: BP 112/69; PULSE 92; RESP 18; TEMP 36.6; O2SAT 96
--- NOTE | 2025-02-17 09:44 | PC.NURSE ---
No nursing group due to MD visit.
[2025-02-17 10:41] VITALS: BP 117/64; PULSE 92; RESP 20; TEMP 36.9; O2SAT 96
--- NOTE | 2025-02-17 11:35 | WPDSLSPROGRE ---
Progress HPI Progress HPI Visit Attended By patient and staff History Obtained From patient Patient Stated Chief Complaint had a tooth pulled HPI This is a routine visit. Patient is being seen for depression. Since our last visit she has had a tooth pulled yesterday, but says that she is not really much pain, and takes ibuprofen. She is beginning to slowly regain vision in her left eye. Enjoys program participates well. Attends 2 days a week. Working on support systems anxiety reduction, among other topics. 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 Continues on Prozac 60 mg q.a.m.. Celebrated a birthday since her last visit. Still smokes. Gets a yearly lung scan. No significant GI symptoms. Average Number of Hours of Sleep 8 Sleep Quality sleep throughout the night Change in PMFSH Releveant to Presenting Illness Yes Describe Changes in PMFSH Tooth extraction as above Review of Systems Review of Systems Constitutional Reports denies change Eyes Reports other ( detached retina) ENT Reports other ( tooth extraction) Respiratory Reports WNL Cardiovascular Reports WNL Gastrointestinal Reports other ( IBS) Musculoskeletal Reports WNL Neurologic Reports WNL Skin Reports WNL ADL's Reports independent Exam Physical Exam Review of Lab Studies n/a Hygiene good General Behavior/Attitude Toward Examiner pleasant and cooperative Pain Yes Pain Location jaw Pain Characteristics acute and aching Psychiatric Exam Level of Consciousness alert Orientation person, place, time and situation Speech normal rate/tone/volume/prosody and coherent Language able to follow instructions or commands Mood less anxious Affect full range, appropriate and congruent Thought Processes/Form logical, linear and goal directed Thought Content anxiety symptoms Delusions none Homicidal/Assaultive Ideation none Suicidal Ideation none Hallucinations none Attention/Concentration focused Attention/Concentration Testing Methods observation/interview Short Term Memory Impairment none STM Testing Methods clinical interview (assessment/observation) Longterm Memory Impairment none LTM Testing Methods recall of biographical information Intellectual Functioning roughly average Intellectual Functioning Assessed By current events Insight fair and improving Insight Assessed By ability to recognize & acknowledge mental illness, ability to understand the implications of mental illness, understanding of treatment options and ability to comply with treatment Judgement fair and improving Judgement Assessed By exploring recent decision-making MMSE n/a Patient Assets able to perform ADLs, willing to accept treatment Patient Liabilities chronic psychiatric illness Assessment and Plan Clinical Impression/Diag Clinical Impression/Diagnosis F 33.1, progressing well, continue to work on anxiety reduction Progress Overview Reason for Continued Services in an Intensive Outpatient Program continued impaired mood and.or depression, patient would decompenste at a lower level of care, not at baseline level of functioning and high risk for relapse Treatment To Be Provided medication management and group/individual/rec therapy Discharge Disposition/Level of Care PCP Anticipated Discharge 4-6 weeks
== END 2025-02-21 23:59 | disposition home or self-care (01) ==
LOC: CHSSENLIFE 10:00
PROVIDERS: PCP Family Medicine; Visit Provider Psychiatry & Neurology Psychiatry
DX: F33.1 Major depressive disorder, recurrent, moderate (principal)
CPT/HCPCS: 90853; 99213; G0463

== ENCOUNTER 2025-05-03 10:00 | Outpatient (RCR) | payer MEDICARE, SELFPAY ==
[2025-02-22 00:03] VITALS: BP 117/64; PULSE 92; RESP 20; TEMP 36.9; O2SAT 96
[2025-02-22 10:44] VITALS: BP 113/63; PULSE 90; RESP 20; TEMP 36.5; O2SAT 96
--- NOTE | 2025-02-24 09:36 | PC.NURSE ---
No nursing group due to MD visit.
[2025-02-24 10:31] VITALS: BP 105/73; PULSE 90; RESP 18; TEMP 36.8; O2SAT 96
[2025-03-01 10:31] VITALS: BP 110/72; PULSE 92; RESP 18; TEMP 36.9; O2SAT 96
--- NOTE | 2025-03-03 09:37 | PC.NURSE ---
No nursing group due to MD visit.
[2025-03-03 10:18] VITALS: BP 109/71; PULSE 90; RESP 18; TEMP 36.4; O2SAT 96
[2025-03-08 10:32] VITALS: BP 114/69; PULSE 89; RESP 20; TEMP 36.9; O2SAT 96
--- NOTE | 2025-03-08 14:07 | PC.NURSE ---
No nursing group due to nurse meeting.
--- NOTE | 2025-03-10 09:44 | PC.NURSE ---
No nursing group due to MD visit.
[2025-03-10 10:31] VITALS: BP 124/66; PULSE 83; RESP 18; TEMP 36.8; O2SAT 97
--- NOTE | 2025-03-10 11:38 | WPDSLSPROGRE ---
Progress HPI Progress HPI Visit Attended By patient and staff History Obtained From patient Patient Stated Chief Complaint nothing HPI This is a routine visit for depression and anxiety. 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 She attends 2 days a week, enjoys the program participates well, working on anxiety reduction, among other topics. She did see her PCP last week and got a flu shot. On Prozac 60 mg q.a.m.. Still smokes. Gets yearly a lung scan. no significant GI symptoms recently. Average Number of Hours of Sleep 8 Sleep Quality sleep throughout the night Change in PMFSH Releveant to Presenting Illness No Review of Systems Review of Systems Constitutional Reports denies change Eyes Reports vision loss/blurred ( Detached retina, resolving) ENT Reports WNL Respiratory Reports WNL Cardiovascular Reports WNL Gastrointestinal Reports other ( IBS) Musculoskeletal Reports WNL Neurologic Reports WNL Skin Reports WNL ADL's Reports independent Exam Physical Exam Review of Lab Studies n/a Hygiene good General Behavior/Attitude Toward Examiner pleasant and cooperative Pain No Psychiatric Exam Level of Consciousness alert Orientation person, place, time and situation Speech normal rate/tone/volume/prosody and coherent Language able to comprehend questions Mood anxious, irritable Affect full range, appropriate and congruent Thought Processes/Form logical, linear and goal directed Thought Content anxiety symptoms Delusions none Homicidal/Assaultive Ideation none Suicidal Ideation none Hallucinations none Attention/Concentration focused Attention/Concentration Testing Methods observation/interview Short Term Memory Impairment none STM Testing Methods clinical interview (assessment/observation) Glove Turner And Former Memory Impairment none LTM Testing Methods recall of biographical information Intellectual Functioning roughly average Intellectual Functioning Assessed By fund of knowledge and current events Insight fair and improving Insight Assessed By ability to recognize & acknowledge mental illness, ability to understand the implications of mental illness, understanding of treatment options and ability to comply with treatment Judgement fair and improving Judgement Assessed By exploring recent decision-making MMSE n/a Patient Assets able to perform ADLs, willing to accept treatment Patient Liabilities chronic psychiatric illness Assessment and Plan Clinical Impression/Diag Clinical Impression/Diagnosis F 33.1, progressing well, continue to work on anxiety reduction Progress Overview Reason for Continued Services in an Outpatient Program continued impaired mood and.or depression, patient would decompenste at a lower level of care, not at baseline level of functioning and high risk for relapse Treatment To Be Provided medication management and group/individual/rec therapy Discharge Disposition/Level of Care PCP Anticipated Discharge 4-6 weeks
[2025-03-15 10:04] VITALS: BP 119/74; PULSE 94; RESP 20; TEMP 36.6; O2SAT 96
--- NOTE | 2025-03-17 09:36 | PC.NURSE ---
No nursing group due to MD visit.
[2025-03-17 10:11] VITALS: BP 120/82; PULSE 80; RESP 20; TEMP 36.8; O2SAT 96
[2025-03-22 10:24] VITALS: BP 113/68; PULSE 86; RESP 18; TEMP 36.7; O2SAT 96
--- NOTE | 2025-03-24 09:36 | PC.NURSE ---
No nursing group due to MD visit.
[2025-03-24 10:34] VITALS: BP 113/64; PULSE 72; RESP 18; TEMP 36.9; O2SAT 97
[2025-03-29 10:25] VITALS: BP 126/72; PULSE 87; RESP 18; TEMP 36.6; O2SAT 96
--- NOTE | 2025-03-29 13:06 | PC.NURSE ---
This nurse called and spoke with [facility] pharmacy in [place] to order the patient Fluoxetine 60mg PO daily X 30 days.
[2025-03-31 09:36] VITALS: BP 119/69; PULSE 82; RESP 20; TEMP 36.2; O2SAT 98
--- NOTE | 2025-03-31 10:28 | PC.NURSE ---
No nursing group due to MD visit.
--- NOTE | 2025-03-31 13:07 | WPDSLSPROGRE ---
Progress HPI Progress HPI Visit Attended By patient and staff History Obtained From patient Patient Stated Chief Complaint willow HPI this is a routine visit for depression anxiety. Patient's eye has improved somewhat but it sounds like the doctors told her that she is still going to have some visual impairment. She plans to have cataract surgery in hope that this will help. However ever since she spirits vision problems she has felt depressed, hopeless, but denies any suicidal homicidal ideations, psychosis, or elda. She is very independent, which she feels is why this is affecting her so significantly. Attends 2 days a weeks, enjoys the program and participates well. Still smokes. Gets a yearly lung scan. Still on Prozac 60 mg q.a.m. but feels that this is no longer helping as much. We discussed a trial of an atypical antipsychotic. Average Number of Hours of Sleep 8 Sleep Quality sleep throughout the night Change in [facility] Releveant to Presenting Illness Yes Describe Changes in [facility] Vision problems as above Review of Systems Review of Systems Constitutional Reports denies change Eyes Reports other ( detached retina, cataracts) ENT Reports WNL Respiratory Reports WNL Cardiovascular Reports WNL Gastrointestinal Reports other ( IBS) Musculoskeletal Reports WNL Neurologic Reports WNL Skin Reports WNL ADL's Reports independent Exam Physical Exam Review of Lab Studies n/a Hygiene good General Behavior/Attitude Toward Examiner pleasant and cooperative Pain No Psychiatric Exam Level of Consciousness alert Orientation person, place, time and situation Speech normal rate/tone/volume/prosody and coherent Language able to comprehend questions Mood depressed Affect full range, appropriate and congruent Thought Processes/Form logical, linear and goal directed Thought Content depressive symptoms Delusions none Homicidal/Assaultive Ideation none Suicidal Ideation none Hallucinations none Attention/Concentration focused Attention/Concentration Testing Methods observation/interview Short Term Memory Impairment none STM Testing Methods clinical interview (assessment/observation) 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 Memory Impairment none LTM Testing Methods recall of biographical information Intellectual Functioning roughly average Intellectual Functioning Assessed By current events Insight fair Insight Assessed By ability to recognize & acknowledge mental illness, ability to understand the implications of mental illness, understanding of treatment options and ability to comply with treatment Judgement fair Judgement Assessed By exploring recent decision-making MMSE n/a Patient Assets able to perform ADLs, willing to accept treatment Patient Liabilities chronic psychiatric illness, vision problems Assessment and Plan Clinical Impression/Diag Clinical Impression/Diagnosis F 33.1, increase in depressive symptoms due to medical issues. We discussed Shaq Gambino, and she is going to do some research on these and we will talk about starting her on 1 of these at our next visit. Progress Overview Reason for Continued Services in an Outpatient Program continued impaired mood and.or depression, patient would decompenste at a lower level of care, not at baseline level of functioning and high risk for relapse Treatment To Be Provided medication management and group/individual/rec therapy Discharge Disposition/Level of Care PCP Anticipated Discharge 4-6 weeks
[2025-04-05 10:46] VITALS: BP 118/71; PULSE 76; RESP 20; TEMP 37.2; O2SAT 97
[2025-04-07 10:24] VITALS: BP 113/64; PULSE 77; RESP 18; TEMP 37.1; O2SAT 97
--- NOTE | 2025-04-07 11:16 | PC.NURSE ---
No nursing group due to MD visit.
[2025-04-12 10:21] VITALS: BP 125/77; PULSE 88; RESP 20; TEMP 36.8; O2SAT 97
--- NOTE | 2025-04-14 09:40 | PC.NURSE ---
No nursing group due to MD visit.
[2025-04-14 10:25] VITALS: BP 114/70; PULSE 82; RESP 20; TEMP 36.6; O2SAT 97
--- NOTE | 2025-04-14 11:52 | WPDSLSPROGRE ---
Progress HPI Progress HPI Visit Attended By patient and staff History Obtained From patient Patient Stated Chief Complaint medication visit HPI patient was just seen last week but this is the medication visit to consider antidepressant augmentation. We talked about Abilify and Rexulti, and I told her that although all antipsychotics have a risk of tardive dyskinesia, Rexulti is unique receptor profile may indicate that there could be a lower risk of this, as well as a lower risk of akathisia compared to Abilify. Attends 2 days a week, enjoys the program participates well. Still on Prozac 60 mg q.a.m.. Still smokes. Plans to have cataract surgery. reviewed labs today, total cholesterol and LDL are elevated. Patient says that she cannot take statins due to muscle pain. Average Number of Hours of Sleep 8 Sleep Quality sleep throughout the night Change in PMFSH Releveant to Presenting Illness No Review of Systems Review of Systems Constitutional Reports denies change Eyes Reports other ( Detached retina, cataracts) ENT Reports WNL Respiratory Reports WNL Cardiovascular Reports WNL Gastrointestinal Reports other ( IBS) Musculoskeletal Reports WNL Neurologic Reports WNL Skin Reports WNL ADL's Reports WNL and Reports independent Exam Physical Exam Review of Lab Studies yes Significant Lab Findings cholesterol 225, LDL 147 Hygiene good General Behavior/Attitude Toward Examiner pleasant and cooperative Pain No Psychiatric Exam Level of Consciousness alert Orientation person, place, time and situation Speech normal rate/tone/volume/prosody and coherent Language able to comprehend questions Mood Anxious Affect full range, appropriate and congruent Thought Processes/Form logical, linear and goal directed Thought Content anxiety symptoms Delusions none Homicidal/Assaultive Ideation none Suicidal Ideation none Hallucinations none Attention/Concentration focused Attention/Concentration Testing Methods observation/interview Short Term Memory Impairment none STM Testing Methods clinical interview (assessment/observation) 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 Memory Impairment none LTM Testing Methods recall of biographical information Intellectual Functioning roughly average Intellectual Functioning Assessed By fund of knowledge Insight fair and improving Insight Assessed By ability to recognize & acknowledge mental illness, ability to understand the implications of mental illness, understanding of treatment options and ability to comply with treatment Judgement fair and improving Judgement Assessed By exploring recent decision-making MMSE n/a Patient Assets able to perform ADLs, willing to accept treatment Patient Liabilities treatment resistant depression Assessment and Plan Clinical Impression/Diag Clinical Impression/Diagnosis F 33.1, patient wishes to try Abilify. Will start 1 mg q.a.m. and see her in a week. Told her that it may take 2 weeks to respond to a particular dose. Progress Overview Reason for Continued Services in an Outpatient Program continued impaired mood and.or depression, patient would decompenste at a lower level of care, not at baseline level of functioning and high risk for relapse Treatment To Be Provided medication management and group/individual/rec therapy Discharge Disposition/Level of Care PCP Anticipated Discharge 4-6 weeks
--- NOTE | 2025-04-14 14:07 | PC.NURSE ---
This nurse called and ordered the patient Abilify 1mg PO daily X 30 days.
[2025-04-19 10:11] VITALS: BP 116/79; PULSE 85; RESP 20; TEMP 36.5; O2SAT 98
--- NOTE | 2025-04-21 09:30 | PC.NURSE ---
No nursing group due to MD visit.
[2025-04-21 10:10] VITALS: BP 118/76; PULSE 85; RESP 20; TEMP 36.8; O2SAT 97
--- NOTE | 2025-04-21 11:52 | P.PN_ITS ---
Progress HPI Progress HPI Visit Attended By patient and staff History Obtained From patient Patient Stated Chief Complaint started it 3 days ago HPI This is a medication follow-up. We just started Abilify 1 mg q.a.m. last week, but she did not start taking it until 3 days ago as she could get it until then. She reports no side effects and understandably no benefit as of yet. I told her it could take at least 2 weeks for for this to take effect. She continues Prozac 60 mg q.a.m.. Enjoys program participates well. Continues to smoke. Now taking eyedrops for her detached retina. Average Number of Hours of Sleep 8 Sleep Quality sleep throughout the night Change in PMFSH Releveant to Presenting Illness Yes Describe Changes in PMFSH Starting Abilify Review of Systems Review of Systems Constitutional Reports denies change Eyes Reports other ( detached retina) ENT Reports WNL Respiratory Reports WNL Cardiovascular Reports WNL Gastrointestinal Reports other (IBS) Musculoskeletal Reports WNL Neurologic Reports WNL Skin Reports WNL ADL's Reports WNL and Reports independent Exam Physical Exam Review of Lab Studies n/a Hygiene good General Behavior/Attitude Toward Examiner pleasant Pain No Psychiatric Exam Level of Consciousness alert Orientation person, place, time and situation Speech normal rate/tone/volume/prosody and coherent Language able to follow instructions or commands Mood anxious Affect full range, appropriate and congruent Thought Processes/Form logical, linear and goal directed Thought Content anxiety symptoms Delusions none Homicidal/Assaultive Ideation none Suicidal Ideation none Hallucinations none Attention/Concentration focused Attention/Concentration Testing Methods observation/interview Short Term Memory Impairment none STM Testing Methods clinical interview (assessment/observation) 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 Women'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 Memory Impairment none LTM Testing Methods recall of biographical information Intellectual Functioning roughly average Intellectual Functioning Assessed By fund of knowledge Insight fair and improving Insight Assessed By ability to recognize & acknowledge mental illness, ability to understand the implications of mental illness, understanding of treatment options and ability to comply with treatment Judgement fair and improving Judgement Assessed By exploring recent decision-making MMSE n/a Patient Assets able to perform ADLs, willing to accept treatment Patient Liabilities treatment resistant depression Assessment and Plan Clinical Impression/Diag Clinical Impression/Diagnosis F 33.1, anxiety and depressive symptoms. Continue working on coping skills and anxiety reduction, await response to Abilify Progress Overview Reason for Continued Services in an Outpatient Program continued impaired mood and.or depression, patient would decompenste at a lower level of care, not at baseline level of functioning and high risk for relapse Treatment To Be Provided medication management and group/individual/rec therapy Discharge Disposition/Level of Care PCP Anticipated Discharge 4-6 weeks
--- NOTE | 2025-04-21 13:14 | P.PN_ITS ---
Progress HPI Progress HPI Visit Attended By patient and staff History Obtained From patient Patient Stated Chief Complaint I am sleeping HPI this is a routine follow-up/ medication check. Patient is being seen for depression, anxiety, and PTSD symptoms. Since we increased her prazosin to 2 mg q.h.s., she reports that she is sleeping much better, and denies other PTSD symptoms. Also has a history of RONI, does not use CPAP, and is not had a sleep study for quite some time. BP is been regularly normal, but she reported an episode when she was traveling recently when her heart rate went up to 140. She says this only happens when she travels I suggested that it might be due to anxiety. Continues trazodone 200 mg q.h.s., zolpidem 10 mg q.h.s., duloxetine 60 mg a day, Xanax 0.25 mg a day p.r.n., medical marijuana as needed for pain but she is not taking much of this at all these days. Is still waiting to hear from Dr. Quiñonez about possible [place] treatment. Average Number of Hours of Sleep 7 Sleep Quality sleep throughout the night Change in PMFSH Releveant to Presenting Illness Yes Describe Changes in PMFSH Improved sleep Review of Systems Review of Systems Constitutional Reports other ( CKD 2) Eyes Reports other ( dry eye) ENT Reports WNL Respiratory Reports other ( history of RONI) Cardiovascular Reports tachycardia and other ( hypertension) Gastrointestinal Reports WNL Musculoskeletal Reports diminished strength, Reports muscle stiffness and Reports other ( chronic pain) Neurologic Reports WNL Skin Reports WNL ADL's Reports WNL and Reports independent Exam Physical Exam Review of Lab Studies n/a Hygiene good General Behavior/Attitude Toward Examiner pleasant and cooperative Pain Yes Pain Location generalized Pain Characteristics chronic Psychiatric Exam Level of Consciousness alert Orientation person, place, time and situation Speech normal rate/tone/volume/prosody and coherent Language able to follow instructions or commands Mood anxious Affect full range, appropriate and congruent Thought Processes/Form logical, linear and goal directed Thought Content anxiety and depressive symptoms Delusions none Homicidal/Assaultive Ideation none Suicidal Ideation none Hallucinations none Attention/Concentration focused Attention/Concentration Testing Methods observation/interview Short Term Memory Impairment none STM Testing Methods clinical interview (assessment/observation) 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 Memory Impairment none LTM Testing Methods recall of biographical information Intellectual Functioning roughly average Intellectual Functioning Assessed By fund of knowledge Insight fair and improving Insight Assessed By ability to recognize & acknowledge mental illness, ability to understand the implications of mental illness, understanding of treatment options and ability to comply with treatment Judgement fair and improving Judgement Assessed By exploring recent decision-making MMSE n/a Patient Assets able to perform ADLs, willing to accept treatment Patient Liabilities chronic pain, prolonged grief Assessment and Plan Clinical Impression/Diag Clinical Impression/Diagnosis F 33.2, F 43.1, insomnia improved. Continue IOP, working on grief, anxiety. Recommended she talk to PCP regarding tachycardia Progress Overview Reason for Continued Services in an Outpatient Program continued impaired mood and.or depression, patient would decompenste at a lower level of care, not at baseline level of functioning and high risk for relapse Treatment To Be Provided medication management and group/individual/rec therapy Discharge Disposition/Level of Care PCP Anticipated Discharge 4-6 weeks
[2025-04-26 10:28] VITALS: BP 124/68; PULSE 90; RESP 20; TEMP 36.8; O2SAT 96
--- NOTE | 2025-04-28 09:39 | PC.NURSE ---
No nursing group due to MD visit.
[2025-04-28 10:28] VITALS: BP 129/74; PULSE 83; RESP 18; TEMP 37; O2SAT 98
--- NOTE | 2025-05-02 08:35 | SLSTHERAPY ---
Voicemail message received from Estella canceling 05/02/2025 group attendance; Estella is scheduled to return to group 05/03/2025.
[2025-05-03 10:11] VITALS: BP 125/72; PULSE 90; RESP 20; TEMP 36.8; O2SAT 96
--- NOTE | 2025-05-10 08:42 | SLSTHERAPY ---
Group canceled due to snow; Estella is scheduled to return to group 05/12/2025.
--- NOTE | 2025-05-11 13:30 | SLSTHERAPY ---
Estella canceled 05/12/2025 group attendance due to having eye surgery; Estella will return to group upon medical clearance to drive.
--- NOTE | 2025-05-13 11:13 | SLSTHERAPY ---
Phone call to Estella for wellness check following eye surgery 05/12/2025; Estella reported successful surgery procedure with no complications; she reports inability to return to group at this time due to driving & recovery restrictions; Estella requests to consult with [facility] Dr. Goldsmith 05/26/2025 for Program discharge medication management consultation.
== END 2025-05-23 23:59 | disposition home or self-care (01) ==
LOC: CHSSENLIFE 10:00
PROVIDERS: PCP Family Medicine; Visit Provider Psychiatry & Neurology Psychiatry
DX: F33.1 Major depressive disorder, recurrent, moderate (principal)
CPT/HCPCS: 90853; 99213; 99214; G0463

== ENCOUNTER 2025-06-08 10:00 | Outpatient (RCR) | payer MEDICARE, SELFPAY ==
[2025-05-24 00:02] VITALS: BP 125/72; PULSE 90; RESP 20; TEMP 36.8; O2SAT 96
--- NOTE | 2025-05-26 10:47 | PC.NURSE ---
No nursing group due to MD visit.
[2025-05-26 10:53] VITALS: BP 121/82; PULSE 80; RESP 18; TEMP 37; O2SAT 97
--- NOTE | 2025-05-26 14:26 | PC.NURSE ---
This nurse called and spoke with [facility] pharmacy to order the patient Abilify 2mg PO daily X 30 days.
--- NOTE | 2025-05-30 09:55 | PC.NURSE ---
No nursing group due to nurse meeting.
[2025-05-30 10:07] VITALS: BP 129/74; PULSE 86; RESP 20; TEMP 36.8; O2SAT 97
[2025-05-31 10:05] VITALS: BP 110/72; PULSE 82; RESP 18; TEMP 36.4; O2SAT 95
--- NOTE | 2025-05-31 11:40 | PC.NURSE ---
No nursing group due to nurse meeting.
[2025-06-06 10:15] VITALS: BP 125/79; PULSE 82; RESP 20; TEMP 36.4; O2SAT 97
--- NOTE | 2025-06-08 09:33 | PC.NURSE ---
No nursing group due to MD visit.
[2025-06-08 10:11] VITALS: BP 108/76; PULSE 90; RESP 20; TEMP 36.7; O2SAT 96
--- NOTE | 2025-06-08 13:34 | WPDSLSDC ---
Discharge Summary Mental Status See response to treatment/treatment course summary Reason for Admission patient is a 75-year-old white female with a long history of depression anxiety, Admitted 02/19/2024 to the program after being previously in the program from 11/01/2021 to 09/30/23. Symptoms of anxiety and depression increased following graduation from the program due to ineffective coping skill usage in discord with daughter. she was previously discharged from the program in October of 2023 on 120 mg of Cymbalta which she reported on admission forgetting to take the afternoon 60 mg tablet. At the time admission she endorsed feelings of worry, anxiety, depression, confusion, loneliness, boredom, self-critical, loss of interest in activities, insomnia, low motivation, difficulty concentrating, indecisiveness, restlessness, fatigue, and irritability. Treatment Plan Utilization/Treatment Supportive/ cognitive therapy was utilized and medications were continued. We provided educational many subjects including safety, nutrition, overall general health, falls, coping skills, grief, behavioral activation, self-care, communication, smoking cessation, boundaries, benefits of exercising, organization, relapse prevention, discharge medications, activities to continue post discharge, etc.. The patient started using her light box for about 30 minutes a day. Medication adjustments following the program -03/25/2024 duloxetine was decreased from 60 mg to 30 mg and Prozac 20 mg q.day was started. On 05/05/2024 Prozac was increased to 40 mg q.day and duloxetine was discontinued. On 06/24/2024 Prozac was increased to 60 mg q.day and on 04/14/2025 Abilify 1 mg was added for augmentation and this was increased to 2 mg Q day on 05/26/2025. Response to [place]/Treatment Course Summary Patient struggled occasionally the program, at least partially due to the fact that she was experiencing eye problems which include vision loss. She thinks this may be getting a little bit better as she is getting injections for the infection. She feels that the Abilify is helping, but wonders if she could take it at nighttime because it seems to making her drowsy. She is sleeping about 8 hours a night. Appetite is good. Functional status - patient is compliant with medical consultation And treatment recommendations. she is able to complete activities of daily living effectively with no assistive device. reports no symptoms of suicidal ideation. She is able to manage her chronic physical conditions appropriately. Mental status exam on discharge-appropriately dressed and groomed, pleasant cooperative. Normal motor activity. Speech - normal amount, rate, volume. Mood/affect less depressed/anxious. thought content- diminished depressive and anxiety symptoms. Denies suicidal or homicidal ideations, psychosis, elda. Thought process logical. Insight and judgment fair to good. Estimated intellectual functioning average. Immediate and recent memory grossly intact. Aftercare Plan Outpatient follow-up with PCP on . She needs to get lab work done in July for Abilify including CBC, CMP, and lipids. We will inform her PCP of this. Discharge Diagnosis F 33.1
== END 2025-06-08 11:00 | disposition home or self-care (01) ==
LOC: CHSSENLIFE 10:00
PROVIDERS: PCP Family Medicine; Visit Provider Psychiatry & Neurology Psychiatry
DX: F33.1 Major depressive disorder, recurrent, moderate (principal)
CPT/HCPCS: 90853; 99213; 99214; G0463